=== PATIENT | male | born 1965 | race Caucasian/White ===

== ENCOUNTER 2016-05-13 21:20 | Emergency (ER) | payer OTHER ==
--- NOTE | 2016-05-13 22:48 | ED CLINICAL REPORT ---
Clinical Report - Physicians/Mid Levels [facility] [address] [place] [address] 05/13/2016 21:20 Patient: MACK GIPSON Time Seen: 21:45. Arrived- By private vehicle. Historian- patient and family. HISTORY OF PRESENT ILLNESS Chief Complaint: TREMORS and AGITATED. ANXIOUS. Wants to stop drug use. Symptoms started several days ago. Substances abused: Narcotics. Last drink just prior to arrival. Last drug use consisted of narcotics. (about 5 days ago). The patient has had mild, intermittent diarrhea. This has occurred several times. It has been watery. No bloody diarrhea. He has been agitated and depressed and had suicidal thoughts. The symptoms are described as moderate. No injuries noted. Similar symptoms previously: Recent medical care: The patient was seen recently at another facility in the emergency department. REVIEW OF SYSTEMS The patient has experienced sweats and had joint pain (neck and back), but not had weight loss. No headache, dizziness, weakness, chest pain or black stools. No numbness, bloody stools, sore throat, cough or difficulty breathing. No difficulty with urination or skin abscess. All systems otherwise negative, except as recorded above. PAST HISTORY See nurses notes. PCP: Dr Brock. Chronic back pain (and neck pain). SOCIAL HISTORY Smoker- current status unknown. Occasional alcohol use. Last drink was just prior to arrival. Patient is not an alcoholic. History of drug use prescribed oxycodone: narcotics. ADDITIONAL NOTES The nursing notes have been reviewed. PHYSICAL EXAM Vital Signs: 05/13/2016 21:27 BP: 130/80. HR: 115. RR: 18. O2 saturation: 96%. Temp: 98.0 F. Appearance: Alert. Oriented X3. Anxious. The patient is agitated and odor of alcohol is present. Head: Head atraumatic. Eyes: Pupils equal, round and reactive to light. ENT: Normal ENT inspection. Airway intact. Moist mucous membranes. Pharynx normal. Neck: Normal inspection. Neck supple. CVS: Tachycardia. Heart sounds normal. Pulses normal. Respiratory: No respiratory distress. Breath sounds normal. Abdomen: Soft and nontender. No organomegaly. Back: Normal inspection. Skin: Skin warm and dry. Normal skin color. No rash. Normal skin turgor. Extremities: Extremities exhibit normal ROM. No lower extremity edema. Neuro: Alert. Oriented X 3. Abnormal mood/affect. Cranial nerves normal (as tested). No cerebellar findings. No motor deficit. No sensory deficit. Reflexes normal. LABS, X-RAYS, AND EKG Laboratory Tests: Breathalyzer 0.196 . Pulse Oximetry: 05/13/2016 21:27 O2 saturation: 96%. (FIO2 - room air). Interpretation: normal. PROGRESS AND PROCEDURES Course of Care: Ativan 1mg IM given. Phenergan 25mg IM given. Dilaudid 2 mg + 1mg IM given. Pt abruptly stopped his chronic oxycodone. He agrees to discuss tapering off of this medication and possible methadone use with his pcp. He is denying SI or HI now; just states he wants to get over the withdrawals 23:40 05/13/16. Patient is stable. Physical exam findings are improved. Symptoms much better. Patient/family counseled. Old ED records reviewed. Disposition: Discharged. Condition: stable and improved. CLINICAL IMPRESSION Suicidal ideation Uncomplicated alcohol intoxication. Narcotic withdrawal INSTRUCTIONS Stay with responsible adult family member (or other responsible adult) until better. Do not work for three days. Drink plenty of fluids. No alcohol until released. (You will need to slowly taper off of your opiates. Your primary care provider or a specific detox center may help you with this). Warnings: Further evaluation is necessary in order to conduct further tests and assess the possibility of serious illness. It is very important to follow up with a physician. SEDATIVE MEDICATION: You were given sedative medication during your visit. Do not drive or operate dangerous machinery. CONTROLLED SUBSTANCE WARNINGS. GENERAL WARNINGS: Return or contact your physician immediately if your condition worsens or changes unexpectedly, if not improving as expected, or if other problems arise. Your Current Medications: CONTINUE TAKING THE FOLLOWING MEDICATIONS: Benadryl Allergy Oral : Tablet 25 mg, given tonight 05/13/16 8pm. OxyCODONE HCl Oral : 120mg, quit last saturday by himself. Phenergan (Promethazine) Oral : 25 mg, prn. Prescription Medications: Clonidine 0.1 mg: Take 1 orally every 12 hours. Dispense thirty (30). No refills. Follow-up with: Christiano Brock MD, [facility], , [facility], [address] , [place], [address] Follow up tomorrow. (Electronically signed by Celestine Cohn DO 05/14/2016 5:32)
--- NOTE | 2016-05-13 22:48 | ED ORDER SUMMARY ---
..... Patient: MACK GIPSON OrderSheet [facility] VisitID: [id number] [place] [address] 50y, M Registration Date/Time: 05/13/2016 ORDER SHEET Weight: 74.8 kg (stated) Allergies: Penicillins GENERAL ORDERS: Breathalyzer (22:02 05/13/2016 [facility]) (Ack 22:06 [facility] P[facility]) (22:39 SBalde R.N.) MEDICATION ORDERS: Dilaudid IM 2 mg (HIGH ALERT MEDICATION, NOW) (21:57 05/13/2016 [facility]) (Ack 21:57 JQuivey R.N.) (22:05 JQuivey R.N.) Phenergan IM 25 mg (HIGH ALERT MEDICATION, NOW) (21:57 05/13/2016 [facility]) (Ack 21:57 JQuivey R.N.) (22:05 JQuivey R.N.) Dilaudid IM 1 mg (HIGH ALERT MEDICATION, NOW) (23:02 05/13/2016 [facility]) (23:15 RCollier R.N.) Ativan IM 1 mg (HIGH ALERT MEDICATION, NOW) (23:02 05/13/2016 [facility]) (23:16 RCollier R.N.) IV FLUIDS: ORDER SHEET NOTES: [Electronically signed by Reina Sotelo R.N. (23:55 05/13/2016)] [Electronically signed by Celestine Cohn DO (05:32 05/14/2016)] [Electronically locked/signed by Reina Sotelo R.N. (23:55 05/13/2016)]
--- NOTE | 2016-05-13 22:48 | ED CLINICAL REPORT ---
Clinical Report - Physicians/Mid Levels [facility] [address] [place] [address] 05/13/2016 21:20 Patient: MACK GIPSON Time Seen: 21:45. Arrived- By private vehicle. Historian- patient and family. HISTORY OF PRESENT ILLNESS Chief Complaint: TREMORS and AGITATED. ANXIOUS. Wants to stop drug use. Symptoms started several days ago. Substances abused: Narcotics. Last drink just prior to arrival. Last drug use consisted of narcotics. (about 5 days ago). The patient has had mild, intermittent diarrhea. This has occurred several times. It has been watery. No bloody diarrhea. He has been agitated and depressed and had suicidal thoughts. The symptoms are described as moderate. No injuries noted. Similar symptoms previously: Recent medical care: The patient was seen recently at another facility in the emergency department. REVIEW OF SYSTEMS The patient has experienced sweats and had joint pain (neck and back), but not had weight loss. No headache, dizziness, weakness, chest pain or black stools. No numbness, bloody stools, sore throat, cough or difficulty breathing. No difficulty with urination or skin abscess. All systems otherwise negative, except as recorded above. PAST HISTORY See nurses notes. PCP: Dr Brock. Chronic back pain (and neck pain). SOCIAL HISTORY Smoker- current status unknown. Occasional alcohol use. Last drink was just prior to arrival. Patient is not an alcoholic. History of drug use prescribed oxycodone: narcotics. ADDITIONAL NOTES The nursing notes have been reviewed. PHYSICAL EXAM Vital Signs: 05/13/2016 21:27 BP: 130/80. HR: 115. RR: 18. O2 saturation: 96%. Temp: 98.0 F. Appearance: Alert. Oriented X3. Anxious. The patient is agitated and odor of alcohol is present. Head: Head atraumatic. Eyes: Pupils equal, round and reactive to light. ENT: Normal ENT inspection. Airway intact. Moist mucous membranes. Pharynx normal. Neck: Normal inspection. Neck supple. CVS: Tachycardia. Heart sounds normal. Pulses normal. Respiratory: No respiratory distress. Breath sounds normal. Abdomen: Soft and nontender. No organomegaly. Back: Normal inspection. Skin: Skin warm and dry. Normal skin color. No rash. Normal skin turgor. Extremities: Extremities exhibit normal ROM. No lower extremity edema. Neuro: Alert. Oriented X 3. Abnormal mood/affect. Cranial nerves normal (as tested). No cerebellar findings. No motor deficit. No sensory deficit. Reflexes normal. LABS, X-RAYS, AND EKG Laboratory Tests: Breathalyzer 0.196 . Pulse Oximetry: 05/13/2016 21:27 O2 saturation: 96%. (FIO2 - room air). Interpretation: normal. PROGRESS AND PROCEDURES Course of Care: Ativan 1mg IM given. Phenergan 25mg IM given. Dilaudid 2 mg + 1mg IM given. Pt abruptly stopped his chronic oxycodone. He agrees to discuss tapering off of this medication and possible methadone use with his pcp. He is denying SI or HI now; just states he wants to get over the withdrawals 23:40 05/13/16. Patient is stable. Physical exam findings are improved. Symptoms much better. Patient/family counseled. Old ED records reviewed. Disposition: Discharged. Condition: stable and improved. CLINICAL IMPRESSION Suicidal ideation Uncomplicated alcohol intoxication. Narcotic withdrawal INSTRUCTIONS Stay with responsible adult family member (or other responsible adult) until better. Do not work for three days. Drink plenty of fluids. No alcohol until released. (You will need to slowly taper off of your opiates. Your primary care provider or a specific detox center may help you with this). Warnings: Further evaluation is necessary in order to conduct further tests and assess the possibility of serious illness. It is very important to follow up with a physician. SEDATIVE MEDICATION: You were given sedative medication during your visit. Do not drive or operate dangerous machinery. CONTROLLED SUBSTANCE WARNINGS. GENERAL WARNINGS: Return or contact your physician immediately if your condition worsens or changes unexpectedly, if not improving as expected, or if other problems arise. Your Current Medications: CONTINUE TAKING THE FOLLOWING MEDICATIONS: Benadryl Allergy Oral : Tablet 25 mg, given tonight 05/13/16 8pm. OxyCODONE HCl Oral : 120mg, quit last saturday by himself. Phenergan (Promethazine) Oral : 25 mg, prn. Prescription Medications: Clonidine 0.1 mg: Take 1 orally every 12 hours. Dispense thirty (30). No refills. Follow-up with: Christiano Brock MD, Family [facility], , [facility], [address] , [place], [address] Follow up tomorrow. (Electronically signed by Celestine Cohn DO 05/14/2016 5:32)
--- NOTE | 2016-05-13 22:48 | ED ORDER SUMMARY ---
..... Patient: MACK GIPSON OrderSheet [facility] VisitID: [id number] [place] [address] 50y, M Registration Date/Time: 05/13/2016 ORDER SHEET Weight: 74.8 kg (stated) Allergies: Penicillins GENERAL ORDERS: Breathalyzer (22:02 05/13/2016 [facility]) (Ack 22:06 Lorenzo [facility] Director [facility]) (22:39 SBalde R.N.) MEDICATION ORDERS: Dilaudid IM 2 mg (HIGH ALERT MEDICATION, NOW) (21:57 05/13/2016 [facility]) (Ack 21:57 JQuivey R.N.) (22:05 JQuivey R.N.) Phenergan IM 25 mg (HIGH ALERT MEDICATION, NOW) (21:57 05/13/2016 [facility]) (Ack 21:57 JQuivey R.N.) (22:05 JQuivey R.N.) Dilaudid IM 1 mg (HIGH ALERT MEDICATION, NOW) (23:02 05/13/2016 [facility]) (23:15 RCollier R.N.) Ativan IM 1 mg (HIGH ALERT MEDICATION, NOW) (23:02 05/13/2016 [facility]) (23:16 RCollier R.N.) IV FLUIDS: ORDER SHEET NOTES: [Electronically signed by Reina Sotelo R.N. (23:55 05/13/2016)] [Electronically signed by Celestine Cohn DO (05:32 05/14/2016)] [Electronically locked/signed by Reina Sotelo R.N. (23:55 05/13/2016)]
--- NOTE | 2016-05-13 22:48 | ED NURSING NOTES ---
Clinical Report - Nurses [facility] [address] [place] [address] 05/13/2016 21:20 [id number] Triage time 21:May 13 2016. Acuity: LEVEL 2. Chief Complaint: SUICIDAL THOUGHTS and ANXIETY. Alert. No acute distress. CAMILLE COMA SCORE: [place]ao Coma Scale: 15- eyes open spontaneously (4); best verbal response- oriented x 4 (5); best motor response- obeys commands (6). --21:34 Susan Morris R.N. 21:27 05/13/16. BP: 130/80. HR: 115. RR: 18. O2 saturation: 96%. Temp: 98.0 F. Pain level now 10/10. --21:34 Susan Morris R.N. No acute distress. (error in previous charting, pt is restless in room, pacing, shakey and asking for help.). --21:50 Susan Morris R.N. Weight: 74.8 kg stated. Height/Length: 74 inches Estimated. BMI: 21.2. --21:27 Susan Morris R.N. Medications Phenergan (Promethazine) Oral 25 mg, as needed. --21:31 Susan Morris R.N. OxyCODONE HCl Oral 120mg (quit last saturday by himself ). --21:31 Susan Morris R.N. Benadryl Allergy Oral (Tablet 25 mg) (given tonight 05/13/16 8pm). --21:32 Susan Morris R.N. Medication/allergy information source: the patient and patient's significant other. --21:34 Susan Morris R.N. Allergies Penicillins. --21:30 Susan Morris R.N. History Arrived by private vehicle. Historian: patient. Accompanied by family. Primary physician (Dr Brock). The patient has had anxiety. Has been feeling agitated. Treatment DIRECTOR OF DIGITAL MARKETING: None. SOCIAL HX: Heavy tobacco smoker (cigarette)- 1 pack per day. Occasional alcohol use. No drug use. No infectious disease exposure. FALL RISK ASSESSMENT: Fall risk assessment completed. No fall risk identified. NUTRITIONAL RISK ASSESSMENT: The nutritional risk assessment revealed no deficiencies. FUNCTIONAL ASSESSMENT: Functional assessment: no impairments noted. LEARNING NEEDS ASSESSMENT: The learning needs assessment revealed no barriers. SKIN INTEGRITY ASSESSMENT: Skin integrity risk assessment completed. No skin integrity risk identified. --21:34 Susan Morris R.N. ( Significant Other brought in pt for narcotic withdrawals. Pt has been taking 120mg of Oxycodone for a length of time, quit last Saturday on his own. Has gone through with withdrawals in the past he states, however this is the worst pt states. Pt is agitated, restless, "I need some help to go through this". SO states he has a gun at home and has been threading his life today. The gun has been removed per SO.). --21:37 Susan Morris R.N. ( Pt states he quit May 03.). --21:51 Susan Morris R.N. SELF HARM ASSESSMENT: A self harm assessment was performed. The patient answered "yes" to the question "Have you recently felt down, depressed, or hopeless?", "Do you have thoughts of harming or killing yourself?", "Have you ever tried to hurt yourself before today?" and "Do you have any dangerous items in your possession?" and "no" to the question "Are you here because you tried to hurt yourself?" and "Have you recently had thoughts about harming or killing others?". The spouse reported the patient's behavior as agitated, restless and irritable and included verbal threats and suicidal comments. In the ED the patient has been agitated, restless and anxious. Family at bedside. The ED physician has been notified. (SO states there is a gun in the house, it has been removed and "in a place that he will not be able to find it" per SO. Pt was upset this am and today, stating he would shoot himself if he didn't get help for his withdrawals. This is all per SO. Pt would not admit to this during our conversation.). --21:54 Susan Morris R.N. PROBLEMS: Back Injury. Back Pain. --21:33 Susan Morris R.N. ADDITIONAL SURGERIES: Back Surgery. Neck Surgery. --21:33 Susan Morris R.N. Interventions ID band on patient. To room. --21:34 Susan Morris R.N. PHYSICAL ASSESSMENT Ambulatory to room. GENERAL / NEURO / PSYCH: Alert. Oriented X 4. Appears anxious and in distress. Poor eye contact. He describes suicidal thoughts (pt denies this in triage process to RN). Patient appears agitated. Patient smells of alcohol. RESPIRATORY: Respirations not labored. CVS: Capillary refill less than 2 seconds. --22:37 Susan Morris R.N. GENERAL / NEURO / PSYCH: Patient appears calm and cooperative. Good eye contact. --23:21 Susan Morris R.N. NURSING PROGRESS NOTES 22:05/13/2016 Dilaudid (HYDROmorphone HCl PF) IM 2 mg given. Allergies verified, confirmed 5 rights and sedative warning given to the patient. --22:05 Mack Donohue R.N. 22:05/13/2016 Phenergan (Promethazine HCl) IM 25 mg given. Allergies verified, confirmed 5 rights and sedative warning given to the patient. --22:05 Mack Donohue R.N. ( BREATHALYZER .196). --22:09 Gary Montejo, ER [employer] Overall patient status is the same- he states feels the same. ( pt states he isn't any better. RN explained that it may take some time for the medicine to kick in and he has been taking 120mg Oxycodone, his tolerance is quite high.). GENERAL / NEURO / PSYCH: The patient reports anxiety and restlessness. --22:34 Susan Morris R.N. 22:33 05/13/16. BP: 142/88. HR: 107. RR: 20. O2 saturation: 97%. --22:34 Susan Morris R.N. ( SO is Cassandra Rubio [phone]. Please call when pt is discharged.). --22:36 Susan Morris R.N. ( Pt states he would like "you to help me with my symptoms and I'd like to go home tonight. I feel safe to go home".). --22:38 Susan Morris R.N. 23:15 05/13/2016 Dilaudid (HYDROmorphone HCl PF) IM 1 mg given. Given in the left ventral gluteus. Allergies verified, confirmed 5 rights and sedative warning given to the patient. (mixed in syringe with Ativan). --23:15 Reina Sotelo R.N. 23:15 05/13/2016 Ativan (LORazepam) IM 1 mg given. Given in the left ventral gluteus. Allergies verified, confirmed 5 rights and sedative warning given to the patient. (mixed in syringe with Dilaudid). --23:16 Reina Sotelo R.N. ( Called and spoke with Cassandra AIME. She will be here at 2345 to pick pt up. Pt has his belongings returned. Pt feels safe to go home and denies any suicidal tendencies.). --23:21 Susan Morris R.N. Overall patient status- he states feels better. --23:21 Susan Morris R.N. DISPOSITION / DISCHARGE No learning barriers present. Patient verbalized understanding. Written instructions provided in Cook Islander. The patient was discharged home and accompanied by spouse. He left the Emergency Department ambulatory and via private vehicle. Spouse driving. ( discharged by another RN, left before they charted discharge). --23:54 Reina Sotelo R.N. 23:53 05/13/16. BP: deferred. HR: deferred. RR: deferred. O2 saturation: deferred. Temp: deferred. Pain level now deferred. --23:54 Reina Sotelo R.N. Locked/Released at 05/13/2016 23:55 by Reina Sotelo R.N.
--- NOTE | 2016-05-14 05:32 | ED MED RECONCILIATION SUMMARY ---
Patient: MACK GIPSON Medication Reconciliation Report [facility] VisitID: [id number] [address] [place] [address] 50y, M Registration Date/Time: 05/13/2016 Weight: 74.8 kg Height/Length: 74 in. BMI: 21.2 ALLERGIES: Penicillins The patient's Home Medications are listed below: CONTINUE TAKING THE FOLLOWING MEDICATIONS: Benadryl Allergy Oral (25 mg), given tonight 05/13/16 8pm OxyCODONE HCl Oral 120mg , quit last saturday by himself Phenergan (Promethazine) Oral 25 mg The source(s) of the original Home Medication information: patient patient's significant other The following Medications were given to the patient in the Emergency Department: Dilaudid [IM] IM 2 mg, administered: 05/13/2016 10:01:00 PM Phenergan [IM] IM 25 mg, administered: 05/13/2016 10:01:00 PM Dilaudid [IM] IM 1 mg, administered: 05/13/2016 11:15:00 PM Ativan [IM] IM 1 mg, administered: 05/13/2016 11:15:00 PM The following Medications were prescribed to the patient: Clonidine 0.1 mg: Take 1 orally every 12 hours. Dispense thirty (30). No refills. -- Celestine Cohn DO
--- NOTE | 2016-05-14 05:32 | ED MAR SUMMARY ---
..... Medication Administration Record [facility] [address] [place] [address] Patient: MACK GIPSON Visit ID: [id number] 50y, M Weight: 74.8 kg Height/Length: 74 in BMI: 21.2 ALLERGIES: Penicillins Given 22:05/13/2016 Mack Donohue R.N. Medication Administered: DILAUDID [IM] (HYDROMORPHONE HCL PF), Dose: 2 mg IM. Medication Ordered: Dilaudid IM 2 mg (HIGH ALERT MEDICATION, NOW). Given :05/13/2016 Mack Donohue R.N. Medication Administered: PHENERGAN [IM] (PROMETHAZINE HCL), Dose: 25 mg IM. Medication Ordered: Phenergan IM 25 mg (HIGH ALERT MEDICATION, NOW). Given :05/13/2016 Reina Sotelo R.N. Medication Administered: DILAUDID [IM] (HYDROMORPHONE HCL PF), Dose: 1 mg IM. Medication Ordered: Dilaudid IM 1 mg (HIGH ALERT MEDICATION, NOW). Given :05/13/2016 Reina Sotelo R.NJing Medication Administered: ATIVAN [IM] (LORAZEPAM), Dose: 1 mg IM. Medication Ordered: Ativan IM 1 mg (HIGH ALERT MEDICATION, NOW).
--- NOTE | 2016-05-14 05:32 | ED DISCHARGE INSTRUCTIONS ---
Patient: MACK GIPSON General Instructions [facility] VisitID: [id number] [place] [address] 50y, M Registration Date/Time: 05/13/2016 Suicidal ideation Uncomplicated alcohol intoxication. Narcotic withdrawal INSTRUCTIONS Stay with responsible adult family member (or other responsible adult) until better. Do not work for three days. Drink plenty of fluids. No alcohol until released. (You will need to slowly taper off of your opiates. Your primary care provider or a specific detox center may help you with this). Warnings: Further evaluation is necessary in order to conduct further tests and assess the possibility of serious illness. It is very important to follow up with a physician. SEDATIVE MEDICATION: You were given sedative medication during your visit. Do not drive or operate dangerous machinery. CONTROLLED SUBSTANCE WARNINGS. GENERAL WARNINGS: Return or contact your physician immediately if your condition worsens or changes unexpectedly, if not improving as expected, or if other problems arise. Your Current Medications: CONTINUE TAKING THE FOLLOWING MEDICATIONS: Benadryl Allergy Oral : Tablet 25 mg, given tonight 05/13/16 8pm. OxyCODONE HCl Oral : 120mg, quit last saturday by himself. Phenergan (Promethazine) Oral : 25 mg, prn. Prescription Medications: Clonidine 0.1 mg: Take 1 orally every 12 hours. Dispense thirty (30). No refills. Follow-up with: Christiano Brock MD, [facility], , [facility], [address] [place] [address], [phone] Follow up tomorrow. ADDITIONAL INFORMATION Alcohol Intoxication Alcohol intoxication occurs when you drink alcohol faster than your liver can remove it from your system. Alcohol intoxication affects your judgment and coordination. Very high blood alcohol levels can cause coma, very slow breathing and even . If you drink alcohol every day, this may gradually cause permanent damage to your liver, brain, heart, pancreas and other organs. Alcohol use during may cause permanent damage to the growing baby. Home Care: Do not drink any more alcohol. DO NOT DRIVE until all effects of the alcohol have worn off. Get lots of rest over the next few days. Drink plenty of water and other non-alcoholic liquids. Try to eat regular meals. If you have been drinking heavily on a daily basis, you may go through alcohol withdrawl. This is also called the shakes or DTs. The usual symptoms last 3 to 4 days and may include nervousness, shakiness, nausea, sweating or sleeplessness. During this time, it is best that you stay with family or friends who can help and support you. You can also admit yourself to a residential detox program. If your symptoms are severe, contact your doctor for medicines to help. Follow Up: If alcohol is causing a problem in your life, these and other organizations can help you: Alcoholics Anonymous offers support through a self-help fellowship. There are no dues or fees. See the Yellow Pages and call for time and place of meetings. www.aa.org [employer] offers support to families of alcohol users. 344.291.1547 www.al-anoevette.org National [place] On Alcoholism And Drug Dependence 408-982-6136 www.ncadd.org There are also inpatient or residential alcohol detox programs. Check the Internet or phonebook Yellow Pages under Drug Abuse & Treatment Centers. Get Prompt Medical Attention if any of the following occur: there) Depression Depression is one of the most common mental health problems today. It is not just a state of unhappiness or sadness. It is a true disease. The cause seems to be related to a decrease in chemicals that transmit signals in the brain. Having a family history of depression, alcoholism or suicide increases the risk. Chronic illness, chronic pain, migraine headaches and high emotional stress also increase the risk. Depression can cause many different symptoms, such as: -- Loss of appetite -- Over-eating -- Not being able to sleep -- Sleeping too much -- Tiredness not related to physical exertion -- Restlessness or irritability -- Slowness of movement or speech -- Feeling depressed or withdrawn -- Loss of interest in things you once enjoyed -- Difficulty in concentrating, poor memory, have trouble making decisions -- Thoughts of harming or killing oneself, or thoughts that life is not worth living -- Low self-esteem The best treatment for depression is a combination of medicine and psychotherapy. Antidepressant medicines can reduce suffering and can improve the ability to function during the depressed period. Therapy can offer emotional support and help you understand emotional factors that may be causing the depression. Home Care: 1) Be kind to yourself. Make it a point to do things that you enjoy (gardening, walking in nature, going to a movie, etc.). Reward yourself for small successes. 2) Take care of your physical body. Eat a balanced diet (low in saturated fat and high in fruits and vegetables). Establish an exercise plan at least 3 times a week for 30 minutes. Even mild-moderate exercise (like brisk walking) can make you feel better. 3) Avoid alcohol, which can make depression worse. Follow-Up with your doctor as advised. It is important to keep in contact with a health care provider until your symptoms begin to improve. Get Prompt Medical Attention if any of the following occur: -- Feeling extreme depression, fear, anxiety, or anger toward yourself or others -- Feeling out of control -- Feeling that you may try to harm yourself or another -- Hearing voices that others do not hear -- Seeing things that others do not see -- Cant sleep or eat for 3 days in a row Clonidine Hydrochloride Oral tablet What is this medicine? CLONIDINE (KLOE ni gini) is used to treat high blood pressure. How should I use this medicine? Take this medicine by mouth with a glass of water. Follow the directions on the prescription label. Take your doses at regular intervals. Do not take your medicine more often than directed. Do not suddenly stop taking this medicine. You must gradually reduce the dose or you may get a dangerous increase in blood pressure. Ask your doctor or health grounds caretaker for advice. Talk to your junior media buyer regarding the use of this medicine in children. Special care may be needed. What side effects may I notice from receiving this medicine? Side effects that you should report to your doctor or health grounds caretaker as soon as possible: allergic reactions like skin rash, itching or hives, swelling of the face, lips, or tongue anxiety, nervousness chest pain depression fast, irregular heartbeat swelling of feet or legs unusually weak or tired Side effects that usually do not require medical attention (report to your doctor or health grounds caretaker if they continue or are bothersome): change in sex drive or performance constipation headache What may interact with this medicine? Do not take this medicine with any of the following medications: MAOIs like Carbex, Eldepryl, Marplan, Nardil, and Parnate This medicine may also interact with the following medications: barbiturate medicines for inducing sleep or treating seizures like phenobarbital certain medicines for blood pressure, heart disease, irregular heart beat certain medicines for depression, anxiety, or psychotic disturbances prescription pain medicines What if I miss a dose? If you miss a dose, take it as soon as you can. If it is almost time for your next dose, take only that dose. Do not take double or extra doses. Where should I keep my medicine? Keep out of the reach of children. Store at room temperature between 15 and 30 degrees C (59 and 86 degrees F). Protect from light. Keep container tightly closed. Throw away any unused medicine after the expiration date. What should I tell my health care provider before I take this medicine? They need to know if you have any of these conditions: kidney disease an unusual or allergic reaction to clonidine, other medicines, foods, dyes, or preservatives or trying to get breast-feeding What should I watch for while using this medicine? Visit your doctor or health grounds caretaker for regular checks on your progress. Check your heart rate and blood pressure regularly while you are taking this medicine. Ask your doctor or health grounds caretaker what your heart rate should be and when you should contact him or her. You may get drowsy or dizzy. Do not drive, use machinery, or do anything that needs mental alertness until you know how this medicine affects you. To avoid dizzy or fainting spells, do not stand or sit up quickly, especially if you are an older person. Alcohol can make you more drowsy and dizzy. Avoid alcoholic drinks. Your mouth may get dry. Chewing sugarless gum or sucking hard candy, and drinking plenty of water will help. Do not treat yourself for coughs, colds, or pain while you are taking this medicine without asking your doctor or health grounds caretaker for advice. Some ingredients may increase your blood pressure. If you are going to have surgery tell your doctor or health grounds caretaker that you are taking this medicine. You have been given the following additional information: Alcohol Intoxication Depression Clonidine Hydrochloride Oral tablet Stay with responsible adult family member (or other responsible adult) until better. Do not work for three days. (Electronically signed by Celestine Cohn DO 05/14/2016 5:32)
--- NOTE | 2016-05-14 05:32 | ED DISCHARGE INSTRUCTIONS ---
Patient: MACK GIPSON General Instructions [facility] VisitID: [id number] [place] [address] 50y, M Registration Date/Time: 05/13/2016 Suicidal ideation Uncomplicated alcohol intoxication. Narcotic withdrawal INSTRUCTIONS Stay with responsible adult family member (or other responsible adult) until better. Do not work for three days. Drink plenty of fluids. No alcohol until released. (You will need to slowly taper off of your opiates. Your primary care provider or a specific detox center may help you with this). Warnings: Further evaluation is necessary in order to conduct further tests and assess the possibility of serious illness. It is very important to follow up with a physician. SEDATIVE MEDICATION: You were given sedative medication during your visit. Do not drive or operate dangerous machinery. CONTROLLED SUBSTANCE WARNINGS. GENERAL WARNINGS: Return or contact your physician immediately if your condition worsens or changes unexpectedly, if not improving as expected, or if other problems arise. Your Current Medications: CONTINUE TAKING THE FOLLOWING MEDICATIONS: Benadryl Allergy Oral : Tablet 25 mg, given tonight 05/13/16 8pm. OxyCODONE HCl Oral : 120mg, quit last saturday by himself. Phenergan (Promethazine) Oral : 25 mg, prn. Prescription Medications: Clonidine 0.1 mg: Take 1 orally every 12 hours. Dispense thirty (30). No refills. Follow-up with: Christiano Brock MD, [facility], , [facility], [address] [place] [address], [phone] Follow up tomorrow. ADDITIONAL INFORMATION Alcohol Intoxication Alcohol intoxication occurs when you drink alcohol faster than your liver can remove it from your system. Alcohol intoxication affects your judgment and coordination. Very high blood alcohol levels can cause coma, very slow breathing and even . If you drink alcohol every day, this may gradually cause permanent damage to your liver, brain, heart, pancreas and other organs. Alcohol use during may cause permanent damage to the growing baby. Home Care: Do not drink any more alcohol. DO NOT DRIVE until all effects of the alcohol have worn off. Get lots of rest over the next few days. Drink plenty of water and other non-alcoholic liquids. Try to eat regular meals. If you have been drinking heavily on a daily basis, you may go through alcohol withdrawl. This is also called the shakes or DTs. The usual symptoms last 3 to 4 days and may include nervousness, shakiness, nausea, sweating or sleeplessness. During this time, it is best that you stay with family or friends who can help and support you. You can also admit yourself to a residential detox program. If your symptoms are severe, contact your doctor for medicines to help. Follow Up: If alcohol is causing a problem in your life, these and other organizations can help you: Alcoholics Anonymous offers support through a self-help fellowship. There are no dues or fees. See the Yellow Pages and call for time and place of meetings. www.aa.org [employer] offers support to families of alcohol users. 217.496.3709 www.al-anoevette.org National [place] On Alcoholism And Drug Dependence 926-859-3119 www.ncadd.org There are also inpatient or residential alcohol detox programs. Check the Internet or phonebook Yellow Pages under Drug Abuse & Treatment Centers. Get Prompt Medical Attention if any of the following occur: there) Depression Depression is one of the most common mental health problems today. It is not just a state of unhappiness or sadness. It is a true disease. The cause seems to be related to a decrease in chemicals that transmit signals in the brain. Having a family history of depression, alcoholism or suicide increases the risk. Chronic illness, chronic pain, migraine headaches and high emotional stress also increase the risk. Depression can cause many different symptoms, such as: -- Loss of appetite -- Over-eating -- Not being able to sleep -- Sleeping too much -- Tiredness not related to physical exertion -- Restlessness or irritability -- Slowness of movement or speech -- Feeling depressed or withdrawn -- Loss of interest in things you once enjoyed -- Difficulty in concentrating, poor memory, have trouble making decisions -- Thoughts of harming or killing oneself, or thoughts that life is not worth living -- Low self-esteem The best treatment for depression is a combination of medicine and psychotherapy. Antidepressant medicines can reduce suffering and can improve the ability to function during the depressed period. Therapy can offer emotional support and help you understand emotional factors that may be causing the depression. Home Care: 1) Be kind to yourself. Make it a point to do things that you enjoy (gardening, walking in nature, going to a movie, etc.). Reward yourself for small successes. 2) Take care of your physical body. Eat a balanced diet (low in saturated fat and high in fruits and vegetables). Establish an exercise plan at least 3 times a week for 30 minutes. Even mild-moderate exercise (like brisk walking) can make you feel better. 3) Avoid alcohol, which can make depression worse. Follow-Up with your doctor as advised. It is important to keep in contact with a health care provider until your symptoms begin to improve. Get Prompt Medical Attention if any of the following occur: -- Feeling extreme depression, fear, anxiety, or anger toward yourself or others -- Feeling out of control -- Feeling that you may try to harm yourself or another -- Hearing voices that others do not hear -- Seeing things that others do not see -- Cant sleep or eat for 3 days in a row Clonidine Hydrochloride Oral tablet What is this medicine? CLONIDINE (KLOE ni gini) is used to treat high blood pressure. How should I use this medicine? Take this medicine by mouth with a glass of water. Follow the directions on the prescription label. Take your doses at regular intervals. Do not take your medicine more often than directed. Do not suddenly stop taking this medicine. You must gradually reduce the dose or you may get a dangerous increase in blood pressure. Ask your doctor or health care navigator for advice. Talk to your dowel inserting machine operator regarding the use of this medicine in children. Special care may be needed. What side effects may I notice from receiving this medicine? Side effects that you should report to your doctor or health care navigator as soon as possible: allergic reactions like skin rash, itching or hives, swelling of the face, lips, or tongue anxiety, nervousness chest pain depression fast, irregular heartbeat swelling of feet or legs unusually weak or tired Side effects that usually do not require medical attention (report to your doctor or health care navigator if they continue or are bothersome): change in sex drive or performance constipation headache What may interact with this medicine? Do not take this medicine with any of the following medications: MAOIs like Carbex, Eldepryl, Marplan, Nardil, and Parnate This medicine may also interact with the following medications: barbiturate medicines for inducing sleep or treating seizures like phenobarbital certain medicines for blood pressure, heart disease, irregular heart beat certain medicines for depression, anxiety, or psychotic disturbances prescription pain medicines What if I miss a dose? If you miss a dose, take it as soon as you can. If it is almost time for your next dose, take only that dose. Do not take double or extra doses. Where should I keep my medicine? Keep out of the reach of children. Store at room temperature between 15 and 30 degrees C (59 and 86 degrees F). Protect from light. Keep container tightly closed. Throw away any unused medicine after the expiration date. What should I tell my health care provider before I take this medicine? They need to know if you have any of these conditions: kidney disease an unusual or allergic reaction to clonidine, other medicines, foods, dyes, or preservatives or trying to get breast-feeding What should I watch for while using this medicine? Visit your doctor or health care navigator for regular checks on your progress. Check your heart rate and blood pressure regularly while you are taking this medicine. Ask your doctor or health care navigator what your heart rate should be and when you should contact him or her. You may get drowsy or dizzy. Do not drive, use machinery, or do anything that needs mental alertness until you know how this medicine affects you. To avoid dizzy or fainting spells, do not stand or sit up quickly, especially if you are an older person. Alcohol can make you more drowsy and dizzy. Avoid alcoholic drinks. Your mouth may get dry. Chewing sugarless gum or sucking hard candy, and drinking plenty of water will help. Do not treat yourself for coughs, colds, or pain while you are taking this medicine without asking your doctor or health care navigator for advice. Some ingredients may increase your blood pressure. If you are going to have surgery tell your doctor or health care navigator that you are taking this medicine. You have been given the following additional information: Alcohol Intoxication Depression Clonidine Hydrochloride Oral tablet Stay with responsible adult family member (or other responsible adult) until better. Do not work for three days. (Electronically signed by Celestine Cohn DO 05/14/2016 5:32)
--- NOTE | 2016-05-14 05:32 | ED MAR SUMMARY ---
..... Medication Administration Record [facility] [address] [place] [address] Patient: MACK GIPSON Visit ID: [id number] 50y, M Weight: 74.8 kg Height/Length: 74 in BMI: 21.2 ALLERGIES: Penicillins Given 22:05/13/2016 Makc Donohue R.N. Medication Administered: DILAUDID [IM] (HYDROMORPHONE HCL PF), Dose: 2 mg IM. Medication Ordered: Dilaudid IM 2 mg (HIGH ALERT MEDICATION, NOW). Given :05/13/2016 Mack Donohue R.N. Medication Administered: PHENERGAN [IM] (PROMETHAZINE HCL), Dose: 25 mg IM. Medication Ordered: Phenergan IM 25 mg (HIGH ALERT MEDICATION, NOW). Given :05/13/2016 Reina Sotelo R.N. Medication Administered: DILAUDID [IM] (HYDROMORPHONE HCL PF), Dose: 1 mg IM. Medication Ordered: Dilaudid IM 1 mg (HIGH ALERT MEDICATION, NOW). Given :05/13/2016 Reina Sotelo R.NJing Medication Administered: ATIVAN [IM] (LORAZEPAM), Dose: 1 mg IM. Medication Ordered: Ativan IM 1 mg (HIGH ALERT MEDICATION, NOW).
--- NOTE | 2016-05-14 05:32 | ED MED RECONCILIATION SUMMARY ---
Patient: MACK GIPOSN Medication Reconciliation Report [facility] VisitID: [id number] [address] [place] [address] 50y, M Registration Date/Time: 05/13/2016 Weight: 74.8 kg Height/Length: 74 in. BMI: 21.2 ALLERGIES: Penicillins The patient's Home Medications are listed below: CONTINUE TAKING THE FOLLOWING MEDICATIONS: Benadryl Allergy Oral (25 mg), given tonight 05/13/16 8pm OxyCODONE HCl Oral 120mg , quit last saturday by himself Phenergan (Promethazine) Oral 25 mg The source(s) of the original Home Medication information: patient patient's significant other The following Medications were given to the patient in the Emergency Department: Dilaudid [IM] IM 2 mg, administered: 05/13/2016 10:01:00 PM Phenergan [IM] IM 25 mg, administered: 05/13/2016 10:01:00 PM Dilaudid [IM] IM 1 mg, administered: 05/13/2016 11:15:00 PM Ativan [IM] IM 1 mg, administered: 05/13/2016 11:15:00 PM The following Medications were prescribed to the patient: Clonidine 0.1 mg: Take 1 orally every 12 hours. Dispense thirty (30). No refills. -- Celestine Cohn DO
== END 2016-05-13 23:40 | disposition home or self-care (01) ==
LOC: ED SRH 21:20
DX: F10.129 Alcohol abuse with intoxication, unspecified (principal); F11.23 Opioid dependence with withdrawal; R45.851 Suicidal ideations; F17.210 Nicotine dependence, cigarettes, uncomplicated; Z88.0 Allergy status to penicillin

== ENCOUNTER 2016-06-25 15:50 | Emergency (ER) | payer OTHER ==
--- NOTE | 2016-06-25 19:18 | ED MED RECONCILIATION SUMMARY ---
Patient: MACK GIPSON Medication Reconciliation Report [facility] VisitID: [id number] [address] [place] [address] 50y, M Registration Date/Time: 06/25/2016 Weight: 71.6 kg Height/Length: 70 in. BMI: 22.6 ALLERGIES: Penicillins The patient's Home Medications are listed below: NONE. The source(s) of the original Home Medication information: patient The following Medications were given to the patient in the Emergency Department: None. The following Medications were prescribed to the patient: None.
--- NOTE | 2016-06-25 19:18 | ED MAR SUMMARY ---
..... Medication Administration Record [facility] [address] [place], [place] [id number] Patient: MACK GIPSON Visit ID: [id number] 50y, M Weight: 71.6 kg Height/Length: 70 in BMI: 22.6 ALLERGIES: Penicillins
--- NOTE | 2016-06-25 19:18 | ED MAR SUMMARY ---
..... Medication Administration Record [facility] [address] [place], [place] [id number] Patient: MACK GIPSON Visit ID: [id number] 50y, M Weight: 71.6 kg Height/Length: 70 in BMI: 22.6 ALLERGIES: Penicillins
--- NOTE | 2016-06-25 19:18 | ED NURSING NOTES ---
Clinical Report - Nurses [place] [address] [place] [address] 06/25/2016 15:49 Patient: MACK GIPSON TRIAGE 16:41 no answer when called in waiting room. --16:41 María Mendoza R.N. Triage time 17:06. Acuity: LEVEL 3. Chief Complaint: (back pain). Alert. CAMILLE COMA SCORE: [place] Coma Scale: 15- eyes open spontaneously (4); best verbal response- oriented x 4 (5); best motor response- obeys commands (6). --17:13 María Mendoza R.N. 17:06 06/25/16. BP: 131/90. HR: 110. RR: 20. O2 saturation: 99% on room air. Temp: 98.1 F (oral). Pain level now: 11/12. --17:13 María Mendoza R.N. Weight: 71.6 kg. Height/Length: 70 inches. BMI: 22.6. --17:12 María Mendoza R.N. Medications None. --17:09 María Mendoza R.N. Medication/allergy information source: the patient. --17:13 María Mendoza R.N. Allergies Penicillins. --17:09 María Mendoza R.N. History Arrived by private vehicle. Historian: patient. Unaccompanied. Primary physician (Delmy). Onset. (about 7 days). ( states he had back surgery and was taking Oxycodone, he was trying to come off of that and decided to use alcohol to try and ease the pain). SOCIAL HX: Heavy tobacco smoker- less than 1 pack per day. Regular alcohol use. (for past 7 days). No drug use. FALL RISK ASSESSMENT: Fall risk assessment completed. No fall risk identified. FUNCTIONAL ASSESSMENT: Functional assessment: no impairments noted. LEARNING NEEDS ASSESSMENT: The learning needs assessment revealed no barriers. --17:13 Reji, María, R.N. PROBLEMS: Chronic Back Pain. Narcotic Withdrawal. Suicidal Ideation. Alcohol Intoxication. Back Injury. Back Pain. --17:10 María Mendoza R.N. ADDITIONAL SURGERIES: Back Surgery. Neck Surgery. --17:10 María Mendoza R.N. Assessment GENERAL / NEURO / PSYCH: The patient is awake and alert, is oriented and appears anxious and agitated. He has good eye contact. RESPIRATORY: Respirations not labored. SKIN: Skin is warm and dry. --17:13 María Mendoza R.N. Interventions ID and allergy band on patient. To treatment room. --17:13 María Mendoza R.N. PHYSICAL ASSESSMENT Ambulatory to room. ( Last drink 1400 feeling shaky, nausea, states feels like going to have a seizure or something. "feels just like he can't explain"). GENERAL / NEURO / PSYCH: Alert. Oriented X 4. Appears in pain, anxious and in distress. HEENT: Pupils equal, round and reactive to light. No facial asymmetry noted. Mucous membranes are pink. RESPIRATORY: Respirations not labored. Breath sounds within normal limits. CVS: Normal sinus rhythm noted. Capillary refill less than 2 seconds. Pulses within normal limits. GI / : ( Last BM three days ago). SKIN: Skin intact. Skin is warm and dry. Normal skin turgor. --17:37 Darron Walton R.N. NURSING PROGRESS NOTES Pulse oximeter and NIBP monitor placed on patient. Patient gowned. Head of bed elevated (45). Reassurance given. Call light placed in reach. Side rails up x 1. Bed placed in lowest position. Brakes of bed on. --17:37 Darron Walton R.N. DISPOSITION / DISCHARGE 18:10. ( Patient left without being treated.). --19:18 Darron Walton R.N. Locked/Released at 06/25/2016 19:18 by Darron Walton R.N.
--- NOTE | 2016-06-25 19:18 | ED MED RECONCILIATION SUMMARY ---
Patient: MACK GIPSON Medication Reconciliation Report [facility] VisitID: [id number] [address] [place] [address] 50y, M Registration Date/Time: 06/25/2016 Weight: 71.6 kg Height/Length: 70 in. BMI: 22.6 ALLERGIES: Penicillins The patient's Home Medications are listed below: NONE. The source(s) of the original Home Medication information: patient The following Medications were given to the patient in the Emergency Department: None. The following Medications were prescribed to the patient: None.
== END 2016-06-25 18:10 | disposition left against medical advice (07) ==
LOC: ED SRH 15:50
DX: Z53.21 Procedure and treatment not carried out due to patient leaving prior to being seen by health care provider (principal)
CPT/HCPCS: 90004

== ENCOUNTER 2016-07-24 18:33 | Emergency (ER) | payer OTHER ==
--- NOTE | 2016-07-24 20:33 | ED NURSING NOTES ---
Clinical Report - Nurses [facility] [address] [place] [address] 07/24/2016 18:33 Patient: MACK GIPSON TRIAGE Triage time 18:36. Acuity: LEVEL 3. Chief Complaint: (ETOH withdrawl). 18:43 07/24/16. Alert. No acute distress. SEPSIS SCREEN: Sepsis Screen. Negative (no infection suspected/documented). TONNY COMA SCORE: Tonny Coma Scale: 15- eyes open spontaneously (4); best verbal response- oriented x 4 (5); best motor response- obeys commands (6). --18:43 Eileen Garcia R.N. 18:43 07/24/16. BP: 122/86. HR: 83. RR: 16. O2 saturation: 97%. Temp: 98.3 F. Pain level now 7/10. --18:43 Eileen Garcia R.N. Weight: 70.3 kg stated. Height/Length: 70 inches Per Patient. BMI: 22.2. --18:42 Eileen Garcia R.N. Medications None. --18:42 Elieen Garcia R.N. Allergies Penicillins. --18:42 Eileen Garcia R.N. Medication/allergy information source: the patient. --18:43 Elieen Garcia R.N. History Arrived by private vehicle, and (dropped off by ). Primary physician (eloise). ( last drink 6 hours ago, feels he is withdrawing from etoh. Also complaining of chronic back and neck pain.). 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 SOCIAL HX: Heavy tobacco smoker (cigarette)- 1 pack per day. Alcohol use. Last drink was 6 hours ago. Patient is a longstanding alcoholic. (states he drinks a 5th every 3-4 days). No drug use. FALL RISK ASSESSMENT: Fall risk assessment completed. No fall risk identified. NUTRITIONAL RISK ASSESSMENT: The nutritional risk assessment revealed no deficiencies. FUNCTIONAL ASSESSMENT: Functional assessment: no impairments noted. LEARNING NEEDS ASSESSMENT: The learning needs assessment revealed no barriers. SKIN INTEGRITY ASSESSMENT: Skin integrity risk assessment completed. No skin integrity risk identified. --18:43 Eileen Garcia R.N. PROBLEMS: Chronic Back Pain. Narcotic Withdrawal. Suicidal Ideation. Alcohol Intoxication. Back Injury. Back Pain. --18:43 Eileen Garcia R.N. ADDITIONAL SURGERIES: Back Surgery. Neck Surgery. --18:43 Eileen Garcia R.N. Interventions ID band on patient. To treatment room. --18:43 Eileen Garcia R.N. PHYSICAL ASSESSMENT 18:43 07/24/16. Ambulatory to room. GENERAL / NEURO / PSYCH: Alert. Oriented X 4. HEENT: Mucous membranes are pink. RESPIRATORY: Respirations not labored. CVS: Capillary refill less than 2 seconds. GI / : Abdomen soft and nontender. SKIN: Skin intact. Skin is warm and dry. Normal skin turgor. --18:43 Eileen Garcia R.N. NURSING PROGRESS NOTES 18:43 07/24/16. The plan of care for this patient has been created. Patient gowned. Head of bed elevated. Call light placed in reach. Bed placed in lowest position. Brakes of bed on. Patient ready for evaluation- chart flagged. --18:43 Eileen Garcia R.N. 18:55 07/24/2016 Site #1 started via IV in the right forearm with an 20g angiocath, with aseptic technique and good blood return; one attempt. Blood drawn: rainbow set. Labeled in the presence of the patient and sent to the lab. Saline lock flushed with 10 mL saline. --20:13 Mack Mcmahan R.N. DISPOSITION / DISCHARGE The patient left the Emergency Department without completion of treatment. Gown found on bed. Patient paged once. Notified the ED physician of patient departure. ( notified PD of IV in place). --19:16 Eileen Garcia R.N. The patient left the Emergency Department against medical advice and without completion of treatment. The patient appears to be alert and oriented x4 (anxious). Gown found on bed. Unable to locate patient. Patient paged once with no response. The patient stated is leaving the ED (pt called on his cell phone and he stated that he went to the bathroom to void, came back to his room and thought that he should leave because he didn't see anyone.). Notified the ED physician and charge nurse of patient departure. Prior to leaving the ED, he was advised to return if needed. Patient left without signing form prior to leaving. He left the Emergency Department ambulatory and via private vehicle. The patient eloped. --18:26 Mack Mcmahan R.N. Locked/Released at 08/02/2016 18:26 by Mack Mcmahan R.N.
--- NOTE | 2016-07-24 20:33 | ED ORDER SUMMARY ---
..... Patient: MACK GIPSON OrderSheet [facility] VisitID: [id number] [address] [place] [address] 50y, M Registration Date/Time: 07/24/2016 ORDER SHEET Weight: 70.3 kg (stated) Allergies: Penicillins GENERAL ORDERS: CBC w Diff Urgent (18:50 07/24/2016 EKoroleva P.A.-C) (Ack 18:51 KHoerner) (20:13 JRomanelli R.N.) CMP Urgent (18:50 07/24/2016 EKoroleva P.A.-C) (Ack 18:51 KHoerner) (20:13 JRomanelli R.N.) UA-Culture if indicated Urgent (18:50 07/24/2016 EKoroleva P.A.-C) (Ack 18:51 KHoerner) Ethyl Alcohol Urgent (18:50 07/24/2016 EKoroleva P.A.-C) (Ack 18:51 KHoerner) (20:13 JRomanelli R.N.) Urine Drug Screen Urgent (19:03 07/24/2016 EKoroleva P.A.-C) (Ack 19:05 KHoerner) (20:13 JRomanelli R.N.) MEDICATION ORDERS: IV FLUIDS: IV NS with Folic Acid 1 mg/L, Magnesium Sulfate 2 gm/L, Multivitamin Concentrate Intravenous 1 amp/L, Thiamine HCl 100 mg/L: initial bolus 1000 mL (1000 mL/hr), then 100 mL/hr for X1 (NOW); Ra (18:50 07/24/2016 EKoroleva P.A.-C) IV Saline Lock (20:11 07/24/2016 JRomanelli R.N. verbal order read back to EKoroleva P.A.-C) (20:13 JRomanelli R.N.) ORDER SHEET NOTES: [Electronically signed by Sharon GaonaA.-C (20:59 07/24/2016)] [Electronically signed by Phyllis Edgar R.N. (08:00 08/01/2016)] [Electronically signed by Mack Mcmahan R.N. (18:26 08/02/2016)] [Electronically locked/signed by Phyllis Edgar R.N. (08:00 08/01/2016)]
--- NOTE | 2016-07-24 20:33 | ED CLINICAL REPORT ---
Clinical Report - Physicians/Mid Levels [facility] [address] [place] [address] 07/24/2016 18:33 Patient: [facility]ACK [facility]IPSON [id number] Time Seen: 19:04 Jul 24 2016. Arrived- By private vehicle. Historian- patient. HISTORY OF PRESENT ILLNESS Chief Complaint: "GOT THE SHAKES" and INTOXICATED. Wants to stop drinking. Wants to enter detox program. Symptoms started today. Patient reports his history of chronic back pain, recently stopped taking his narcotic medications, oxycodone, seen as been on them for 6 years, this was a decision he mean by himself, and has been drinking more heavily over the last 7 days, 1/5 hard alcohol a day. Reports last drink 6 hours prior. REVIEW OF SYSTEMS The patient has not had weight loss. No headache or dizziness. All systems otherwise negative, except as recorded above. PAST HISTORY Problems: Chronic Back Pain. Narcotic Withdrawal. Suicidal Ideation. Alcohol Intoxication. Back Injury. Back Pain. Additional Surgeries: Back Surgery. Neck Surgery. Medications: None. Allergies: Penicillins. SOCIAL HISTORY Has social support. Has place to stay (lives at home with / daughter). ADDITIONAL NOTES The nursing notes have been reviewed. PHYSICAL EXAM Vital Signs: 07/24/2016 18:43 BP: 122/86. HR: 83. RR: 16. O2 saturation: 97%. Temp: 98.3 F. Head: Head atraumatic. No ecchymosis. Eyes: Pupils equal, round and reactive to light. ENT: The mucous membranes are not dry. Neck: Normal inspection. CVS: Normal heart rate and rhythm. Heart sounds normal. Pulses normal. Rhythm normal. No cardiac murmur. Respiratory: No respiratory distress. Breath sounds normal. Abdomen: Soft and nontender. Skin: Normal skin color. Neuro: Alert. Oriented X 3. Mood/affect normal. Speech normal. No cerebellar findings. No motor deficit. LABS, X-RAYS, AND EKG Laboratory Tests: CBC w Diff: (YANI: 07/24/2016 18:50) ( MsgRcvd 07/24/2016 19:07) Final results Test Result Flag Units (Reference) WHITE BLOOD COUNT 4.7 K/uL (4.5-11.5) RED BLOOD COUNT 4.79 M/uL (4.50-5.90) HEMOGLOBIN 16.0 gm/dL (13.5-17.5) HEMATOCRIT 47.1 % (41.0-53.0) MEAN CELL VOLUME 98 fL (80-100) MEAN CORPUSCULAR HGB 33 pg (26-34) MEAN CORPUSCULAR HGB CONC 34 g/dL (31-37) RED CELL DISTRIBUTION WIDTH 16.5 H % (11.6-14.8) PLATELET COUNT 287 K/uL (150-400) NEUTROPHIL % 52.3 % (50-75) LYMPH % 38.3 % (25-40) MONO % 7.5 % (3-14) EOSINOPHIL % 0.8 % (0-4) BASOPHIL % 1.1 % (0-2) CMP: (YANI: 07/24/2016 18:50) ( MsgRcvd 07/24/2016 19:24) Final results Test Result Flag Units (Reference) GLUCOSE 88 mg/dL (70-110) BUN 12 mg/dL (7-18) CREATININE 0.8 mg/dL (0.6-1.3) Estimated GFR >60 mL/min Estimated GFR- >60 mL/min Note: Persistent reduction over 3 months in eGFR<60 mL/min/1.73 m2 defines CKD. Patients with eGFR values>=60 mL/min/1.73 m2 may also have CKD if evidence ofpersistent proteinuria. Additional information may be foundat www.kidney.org. SODIUM 144 mmol/L (136-145) POTASSIUM 3.7 mmol/L (3.5-5.1) CHLORIDE 104 mmol/L (98-107) CARBON DIOXIDE 22 mmol/L (21-32) CALCIUM 9.0 mg/dL (8.5-10.1) TOTAL PROTEIN 8.4 H g/dL (6.4-8.2) ALBUMIN 4.3 g/dL (3.3-5.0) BILIRUBIN, TOTAL 0.7 mg/dL (0.0-1.0) ALKALINE PHOSPHATASE 71 U/L (46-116) AST (SGOT) 76 H U/L (15-37) ALT (SGPT) 55 U/L (12-78) ETHYL ALCOHOL 296 H mg/dL (3-10) . PROGRESS AND PROCEDURES Course of Care: IV was started for the patient, consequently he left the emergency department, have attempted to call him phone him, as well as overhead page him, unable to find patient at this time. Patient left AGAINST MEDICAL ADVICE in the emergency department, he was alert awake oriented, he was not witnessed leaving, he did have an IV in place, if found he needs to be have the IV removed, he does not have any active tremors at the time of his departure. Patient is stable. Symptoms better. Patient/family counseled. CLINICAL IMPRESSION (Electronically signed by Sharon Gaona P.A.-C 07/24/2016 20:59)
--- NOTE | 2016-07-24 20:33 | ED NURSING NOTES ---
Clinical Report - Nurses [facility] [address] [place] [address] 07/24/2016 18:33 Patient: MACK GIPSON TRIAGE Triage time 18:36. Acuity: LEVEL 3. Chief Complaint: (ETOH withdrawl). 18:43 07/24/16. Alert. No acute distress. SEPSIS SCREEN: Sepsis Screen. Negative (no infection suspected/documented). TONNY COMA SCORE: Tonny Coma Scale: 15- eyes open spontaneously (4); best verbal response- oriented x 4 (5); best motor response- obeys commands (6). --18:43 Eileen Garcia R.N. 18:43 07/24/16. BP: 122/86. HR: 83. RR: 16. O2 saturation: 97%. Temp: 98.3 F. Pain level now 7/10. --18:43 Eileen Garcia R.N. Weight: 70.3 kg stated. Height/Length: 70 inches Per Patient. BMI: 22.2. --18:42 Eileen Garcia R.N. Medications None. --18:42 Eileen Garcia R.N. Allergies Penicillins. --18:42 Eileen Garcia R.N. Medication/allergy information source: the patient. --18:43 Eileen Garcia R.N. History Arrived by private vehicle, and (dropped off by ). Primary physician (eloise). ( last drink 6 hours ago, feels he is withdrawing from etoh. Also complaining of chronic back and neck pain.). 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 SOCIAL HX: Heavy tobacco smoker (cigarette)- 1 pack per day. Alcohol use. Last drink was 6 hours ago. Patient is a longstanding alcoholic. (states he drinks a 5th every 3-4 days). No drug use. FALL RISK ASSESSMENT: Fall risk assessment completed. No fall risk identified. NUTRITIONAL RISK ASSESSMENT: The nutritional risk assessment revealed no deficiencies. FUNCTIONAL ASSESSMENT: Functional assessment: no impairments noted. LEARNING NEEDS ASSESSMENT: The learning needs assessment revealed no barriers. SKIN INTEGRITY ASSESSMENT: Skin integrity risk assessment completed. No skin integrity risk identified. --18:43 Eileen Garcia R.N. PROBLEMS: Chronic Back Pain. Narcotic Withdrawal. Suicidal Ideation. Alcohol Intoxication. Back Injury. Back Pain. --18:43 Eileen Garcia R.N. ADDITIONAL SURGERIES: Back Surgery. Neck Surgery. --18:43 Eileen Garcia R.N. Interventions ID band on patient. To treatment room. --18:43 Eileen Garcia R.N. PHYSICAL ASSESSMENT 18:43 07/24/16. Ambulatory to room. GENERAL / NEURO / PSYCH: Alert. Oriented X 4. HEENT: Mucous membranes are pink. RESPIRATORY: Respirations not labored. CVS: Capillary refill less than 2 seconds. GI / : Abdomen soft and nontender. SKIN: Skin intact. Skin is warm and dry. Normal skin turgor. --18:43 Eileen Garcia R.N. NURSING PROGRESS NOTES 18:43 07/24/16. The plan of care for this patient has been created. Patient gowned. Head of bed elevated. Call light placed in reach. Bed placed in lowest position. Brakes of bed on. Patient ready for evaluation- chart flagged. --18:43 Eileen Garcia R.N. 18:55 07/24/2016 Site #1 started via IV in the right forearm with an 20g angiocath, with aseptic technique and good blood return; one attempt. Blood drawn: rainbow set. Labeled in the presence of the patient and sent to the lab. Saline lock flushed with 10 mL saline. --20:13 Mack Mcmahan R.N. DISPOSITION / DISCHARGE The patient left the Emergency Department without completion of treatment. Gown found on bed. Patient paged once. Notified the ED physician of patient departure. ( notified PD of IV in place). --19:16 Eileen Garcia R.N. The patient left the Emergency Department against medical advice and without completion of treatment. The patient appears to be alert and oriented x4 (anxious). Gown found on bed. Unable to locate patient. Patient paged once with no response. The patient stated is leaving the ED (pt called on his cell phone and he stated that he went to the bathroom to void, came back to his room and thought that he should leave because he didn't see anyone.). Notified the ED physician and charge nurse of patient departure. Prior to leaving the ED, he was advised to return if needed. Patient left without signing form prior to leaving. He left the Emergency Department ambulatory and via private vehicle. The patient eloped. --18:26 Mack Mcmahan R.N. Locked/Released at 08/02/2016 18:26 by Mack Mcmahan R.N.
--- NOTE | 2016-07-24 20:33 | ED ORDER SUMMARY ---
..... Patient: MACK GIPSON OrderSheet [facility] VisitID: [id number] [address] [place] [address] 50y, M Registration Date/Time: 07/24/2016 ORDER SHEET Weight: 70.3 kg (stated) Allergies: Penicillins GENERAL ORDERS: CBC w Diff Urgent (18:50 07/24/2016 EKoroleva P.A.-C) (Ack 18:51 KHoerner) (20:13 JRomanelli R.N.) CMP Urgent (18:50 07/24/2016 EKoroleva P.A.-C) (Ack 18:51 KHoerner) (20:13 JRomanelli R.N.) UA-Culture if indicated Urgent (18:50 07/24/2016 EKoroleva P.A.-C) (Ack 18:51 KHoerner) Ethyl Alcohol Urgent (18:50 07/24/2016 EKoroleva P.A.-C) (Ack 18:51 KHoerner) (20:13 JRomanelli R.N.) Urine Drug Screen Urgent (19:03 07/24/2016 EKoroleva P.A.-C) (Ack 19:05 KHoerner) (20:13 JRomanelli R.N.) MEDICATION ORDERS: IV FLUIDS: IV NS with Folic Acid 1 mg/L, Magnesium Sulfate 2 gm/L, Multivitamin Concentrate Intravenous 1 amp/L, Thiamine HCl 100 mg/L: initial bolus 1000 mL (1000 mL/hr), then 100 mL/hr for X1 (NOW); Ra (18:50 07/24/2016 EKoroleva P.A.-C) IV Saline Lock (20:11 07/24/2016 JRomanelli R.N. verbal order read back to EKoroleva P.A.-C) (20:13 JRomanelli R.N.) ORDER SHEET NOTES: [Electronically signed by Sharon GaonaA.-C (20:59 07/24/2016)] [Electronically signed by Phyllis Edgar R.N. (08:00 08/01/2016)] [Electronically signed by Mack Mcmahan R.N. (18:26 08/02/2016)] [Electronically locked/signed by Phyllis Edgar R.N. (08:00 08/01/2016)]
--- NOTE | 2016-08-02 18:27 | ED MAR SUMMARY ---
..... Medication Administration Record [facility] [address] [place], [place] [id number] Patient: MACK GIPSON Visit ID: [id number] 50y, M Weight: 70.3 kg Height/Length: 70 in BMI: 22.2 ALLERGIES: Penicillins
--- NOTE | 2016-08-02 18:27 | ED DISCHARGE INSTRUCTIONS ---
Patient: MACK GIPSON General Instructions [facility] VisitID: [id number] [place] [address] 50y, M Registration Date/Time: 07/24/2016 ADDITIONAL INFORMATION Alcohol Intoxication Alcohol intoxication occurs when you drink alcohol faster than your liver can remove it from your system. Alcohol intoxication affects your judgment and coordination. Very high blood alcohol levels can cause coma, very slow breathing and even . If you drink alcohol every day, this may gradually cause permanent damage to your liver, brain, heart, pancreas and other organs. Alcohol use during may cause permanent damage to the growing baby. Home Care: Do not drink any more alcohol. DO NOT DRIVE until all effects of the alcohol have worn off. Get lots of rest over the next few days. Drink plenty of water and other non-alcoholic liquids. Try to eat regular meals. If you have been drinking heavily on a daily basis, you may go through alcohol withdrawl. This is also called the shakes or DTs. The usual symptoms last 3 to 4 days and may include nervousness, shakiness, nausea, sweating or sleeplessness. During this time, it is best that you stay with family or friends who can help and support you. You can also admit yourself to a residential detox program. If your symptoms are severe, contact your doctor for medicines to help. Follow Up: If alcohol is causing a problem in your life, these and other organizations can help you: Alcoholics Anonymous offers support through a self-help fellowship. There are no dues or fees. See the Yellow Pages and call for time and place of meetings. www.aa.org Al-Anon offers support to families of alcohol users. 977.606.5594 www.al-anon.org National [place] On Alcoholism And Drug Dependence 372-686-3058 www.ncadd.org There are also inpatient or residential alcohol detox programs. Check the Internet or phonebook Yellow Pages under Drug Abuse & Treatment Centers. Get Prompt Medical Attention if any of the following occur: there) You have been given the following additional information: Alcohol Intoxication (Electronically signed by Sharon Gaona P.A.-C 07/24/2016 20:59)
--- NOTE | 2016-08-02 18:27 | ED MED RECONCILIATION SUMMARY ---
Patient: MACK GIPSON Medication Reconciliation Report [facility] VisitID: [id number] [address] [place] [address] 50y, M Registration Date/Time: 07/24/2016 Weight: 70.3 kg Height/Length: 70 in. BMI: 22.2 ALLERGIES: Penicillins The patient's Home Medications are listed below: NONE. The source(s) of the original Home Medication information: patient The following Medications were given to the patient in the Emergency Department: None. The following Medications were prescribed to the patient: None.
--- NOTE | 2016-08-02 18:27 | ED DISCHARGE INSTRUCTIONS ---
Patient: MACK GIPSON General Instructions [facility] VisitID: [id number] [place] [address] 50y, M Registration Date/Time: 07/24/2016 ADDITIONAL INFORMATION Alcohol Intoxication Alcohol intoxication occurs when you drink alcohol faster than your liver can remove it from your system. Alcohol intoxication affects your judgment and coordination. Very high blood alcohol levels can cause coma, very slow breathing and even . If you drink alcohol every day, this may gradually cause permanent damage to your liver, brain, heart, pancreas and other organs. Alcohol use during may cause permanent damage to the growing baby. Home Care: Do not drink any more alcohol. DO NOT DRIVE until all effects of the alcohol have worn off. Get lots of rest over the next few days. Drink plenty of water and other non-alcoholic liquids. Try to eat regular meals. If you have been drinking heavily on a daily basis, you may go through alcohol withdrawl. This is also called the shakes or DTs. The usual symptoms last 3 to 4 days and may include nervousness, shakiness, nausea, sweating or sleeplessness. During this time, it is best that you stay with family or friends who can help and support you. You can also admit yourself to a residential detox program. If your symptoms are severe, contact your doctor for medicines to help. Follow Up: If alcohol is causing a problem in your life, these and other organizations can help you: Alcoholics Anonymous offers support through a self-help fellowship. There are no dues or fees. See the Yellow Pages and call for time and place of meetings. www.aa.org Al-Anon offers support to families of alcohol users. 963.737.6221 www.al-anon.org National [place] On Alcoholism And Drug Dependence 684-351-3623 www.ncadd.org There are also inpatient or residential alcohol detox programs. Check the Internet or phonebook Yellow Pages under Drug Abuse & Treatment Centers. Get Prompt Medical Attention if any of the following occur: there) You have been given the following additional information: Alcohol Intoxication (Electronically signed by Sharon Gaona P.A.-C 07/24/2016 20:59)
--- NOTE | 2016-08-02 18:27 | ED MED RECONCILIATION SUMMARY ---
Patient: MACK GIPSON Medication Reconciliation Report [facility] VisitID: [id number] [address] [place] [address] 50y, M Registration Date/Time: 07/24/2016 Weight: 70.3 kg Height/Length: 70 in. BMI: 22.2 ALLERGIES: Penicillins The patient's Home Medications are listed below: NONE. The source(s) of the original Home Medication information: patient The following Medications were given to the patient in the Emergency Department: None. The following Medications were prescribed to the patient: None.
--- NOTE | 2016-08-02 18:27 | ED MAR SUMMARY ---
..... Medication Administration Record [facility] [address] [place], [place] [id number] Patient: MACK GIPSON Visit ID: [id number] 50y, M Weight: 70.3 kg Height/Length: 70 in BMI: 22.2 ALLERGIES: Penicillins
== END 2016-07-24 19:19 | disposition home or self-care (01) ==
LOC: ED SRH 18:33
DX: F10.239 Alcohol dependence with withdrawal, unspecified (principal); F11.10 Opioid abuse, uncomplicated
CPT/HCPCS: 90100; 92010; 95059

== ENCOUNTER 2016-07-25 16:42 | Emergency (ER) | payer OTHER ==
--- NOTE | 2016-07-25 17:41 | DIAGNOSTIC IMAGING REPORT ---
PROCEDURE: XR LUMBAR SPINE 2 OR 3 VIEWS INDICATION: LOWER BACK PAIN TECHNIQUE: Three views. COMPARISON: Lumbar CT 08/09/2019 FINDINGS: Status post L5-S1 fusion for spondylolisthesis. No fracture dislocation. IMPRESSION: 1. Status post lumbar fusion and artificial disc. No fracture or dislocation.
--- NOTE | 2016-07-25 17:47 | ED ORDER SUMMARY ---
..... Patient: MACK GIPSON OrderSheet [facility] VisitID: [id number] [place] [address] 50y, M Registration Date/Time: 07/25/2016 ORDER SHEET Weight: 68.0 kg (stated) Allergies: Penicillin GENERAL ORDERS: Urine Drug Screen Urgent (16:54 07/25/2016 Elijah Russell) (Ack 16:57 Ethan) (17:20 JBoardley R.N.) UA-Culture if indicated Urgent (16:54 07/25/2016 Elijah Russell) (Ack 16:57 Ethan) (17:20 JBoardley R.N.) Lumbar Spine 2 or 3V Urgent (17:06 07/25/2016 Elijah Russell) (Ack 17:07 Ethan) (17:20 JBoardley R.N.) MEDICATION ORDERS: IV FLUIDS: Toradol IV 30 mg (NOW) (17:06 07/25/2016 Elijah Russell) (Ack 17:08 SStone R.N.) (17:12 SStone R.N.) ORDER SHEET NOTES: [Electronically signed by Little Keith R.N. (17:55 07/25/2016)] [Electronically signed by Roge Kearney Dr. (22:21 07/25/2016)] [Electronically locked/signed by Little Keith R.N. (17:55 07/25/2016)]
--- NOTE | 2016-07-25 17:47 | ED ORDER SUMMARY ---
..... Patient: MACK GIPSON OrderSheet [facility] VisitID: [id number] [place] [address] 50y, M Registration Date/Time: 07/25/2016 ORDER SHEET Weight: 68.0 kg (stated) Allergies: Penicillin GENERAL ORDERS: Urine Drug Screen Urgent (16:54 07/25/2016 Elijah Russell) (Ack 16:57 Ethan) (17:20 JBoardley R.N.) UA-Culture if indicated Urgent (16:54 07/25/2016 Elijah Russell) (Ack 16:57 Ethan) (17:20 JBoardley R.N.) Lumbar Spine 2 or 3V Urgent (17:06 07/25/2016 Elijah Russell) (Ack 17:07 Ethan) (17:20 JBoardley R.N.) MEDICATION ORDERS: IV FLUIDS: Toradol IV 30 mg (NOW) (17:06 07/25/2016 Elijah Russell) (Ack 17:08 SStone R.N.) (17:12 SStone R.N.) ORDER SHEET NOTES: [Electronically signed by Little Keith R.N. (17:55 07/25/2016)] [Electronically signed by Roge Kearney Dr. (22:21 07/25/2016)] [Electronically locked/signed by Little Keith R.N. (17:55 07/25/2016)]
--- NOTE | 2016-07-25 17:47 | ED NURSING NOTES ---
Clinical Report - Nurses [facility] [place] [address] 07/25/2016 16:43 Patient: MACK GIPSON TRIAGE Triage time 16:44. Acuity: LEVEL 3. Chief Complaint: BACK PAIN and (lower back pain with radiation down both legs. Hx of back surgery 3 years ago). --16:47 Little Keith R.N. 16:44 07/25/16. BP: 129/61. HR: 94. RR: 22. O2 saturation: 94% on room air. Temp: 98.3 F. Pain level now: 01/13. --16:47 Little Keith R.N. Weight: 68 kg stated. Height/Length: 70 inches Per Patient. BMI: 21.5. --16:47 Little Keith R.N. Medications None. --16:46 Little Keith R.N. Allergies Penicillin. --16:45 Little Keith R.N. 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 SOCIAL HX: Smoker- current status unknown. Alcohol use; consumes beer occasionally. --16:47 Little Keith R.N. Interventions ID band on patient. --16:47 Little Keith R.N. PHYSICAL ASSESSMENT To room via stretcher. GENERAL / NEURO / PSYCH: Alert. Oriented X 4. (intoxicated). RESPIRATORY: Respirations not labored. Breath sounds within normal limits. GI / : Abdomen soft. EXTREMITIES: Sensation intact in extremities. BACK: ( vertical scar lower back from previous surgery. well healed.). Normal inspection of the neck and back. --16:49 Little Keith R.N. NURSING PROGRESS NOTES Patient gowned. Reassurance given. Call light placed in reach. Side rails up. Bed placed in lowest position. Patient waiting for evaluation. --16:50 Little Keith R.N. ( mask placed on patient due to his cough. He states he has had this cough for at least six weeks.). --16:50 Little Keith R.N. ( patient had an episode of shaking, clenching his hands, would not respond to nurse. He turned over on his side, grabbed the railing and continued to shake. A second nurse was called into the room. The patient would not respond to verbal commands, though when asked by the MD to place a padron for a urine sample, the patient opened his eyes and said no padron. I refuse.). --16:57 Little Keith R.N. 16:46 07/25/2016 Site #1 started prior to arrival by EMS via IV in the left antecubital space with an 18g angiocath. Saline lock flushed with 10 mL saline. --17:11 Little Keith R.N. 17:06 07/25/2016 Toradol IVP 30 mg given over 3 minute(s) via site #1. --17:12 Little Keith R.N. Patient transported to radiology by wheelchair with tech. --17:17 Marci Ferguson R.N. 17:18 07/25/16. ( Pt was found standing at side of bed, pulled out IV and pulled off cardiac leads. Pt stated he "does not like the IV and the ECG leads." MD aware.). --17:18 Wily Kate R.N. 17:18 07/25/16. Patient and family informed about reason for wait and about plan of care. --17:18 Wily Kate R.N. 17:19 07/25/16. ED physician notified about patient's status. --17:19 Wily Kate R.N. ( M99 phoned to inquire about patient belongings. Informed they left them at his house.). --17:48 Little Keith R.N. DISPOSITION / DISCHARGE Departure time: 1750. The patient left the Emergency Department against medical advice; patient was unaccompanied. The patient appears to be uncooperative. Notified the ED physician of patient departure. Patient refused to sign form prior to leaving. The patient left the Emergency Department ambulatory. --17:53 Little Keith R.N. Locked/Released at 07/25/2016 17:55 by Little Keith R.N.
--- NOTE | 2016-07-25 17:47 | ED NURSING NOTES ---
Clinical Report - Nurses [facility] [place] [address] 07/25/2016 16:43 Patient: MACK GIPSON TRIAGE Triage time 16:44. Acuity: LEVEL 3. Chief Complaint: BACK PAIN and (lower back pain with radiation down both legs. Hx of back surgery 3 years ago). --16:47 Little Keith R.N. 16:44 07/25/16. BP: 129/61. HR: 94. RR: 22. O2 saturation: 94% on room air. Temp: 98.3 F. Pain level now: 01/13. --16:47 Little Keith R.N. Weight: 68 kg stated. Height/Length: 70 inches Per Patient. BMI: 21.5. --16:47 Little Keith R.N. Medications None. --16:46 Little Keith R.N. Allergies Penicillin. --16:45 Little Keith R.N. 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 SOCIAL HX: Smoker- current status unknown. Alcohol use; consumes beer occasionally. --16:47 Little Keith R.N. Interventions ID band on patient. --16:47 Little Keith R.N. PHYSICAL ASSESSMENT To room via stretcher. GENERAL / NEURO / PSYCH: Alert. Oriented X 4. (intoxicated). RESPIRATORY: Respirations not labored. Breath sounds within normal limits. GI / : Abdomen soft. EXTREMITIES: Sensation intact in extremities. BACK: ( vertical scar lower back from previous surgery. well healed.). Normal inspection of the neck and back. --16:49 Little Keith R.N. NURSING PROGRESS NOTES Patient gowned. Reassurance given. Call light placed in reach. Side rails up. Bed placed in lowest position. Patient waiting for evaluation. --16:50 Little Keith R.N. ( mask placed on patient due to his cough. He states he has had this cough for at least six weeks.). --16:50 Little Keith R.N. ( patient had an episode of shaking, clenching his hands, would not respond to nurse. He turned over on his side, grabbed the railing and continued to shake. A second nurse was called into the room. The patient would not respond to verbal commands, though when asked by the MD to place a padron for a urine sample, the patient opened his eyes and said no padron. I refuse.). --16:57 Little Keith R.N. 16:46 07/25/2016 Site #1 started prior to arrival by EMS via IV in the left antecubital space with an 18g angiocath. Saline lock flushed with 10 mL saline. --17:11 Little Keith R.N. 17:06 07/25/2016 Toradol IVP 30 mg given over 3 minute(s) via site #1. --17:12 Little Keith R.N. Patient transported to radiology by wheelchair with tech. --17:17 Marci Ferguson R.N. 17:18 07/25/16. ( Pt was found standing at side of bed, pulled out IV and pulled off cardiac leads. Pt stated he "does not like the IV and the ECG leads." MD aware.). --17:18 Wily Kate R.N. 17:18 07/25/16. Patient and family informed about reason for wait and about plan of care. --17:18 Wily Kate R.N. 17:19 07/25/16. ED physician notified about patient's status. --17:19 Wily Kate R.N. ( M99 phoned to inquire about patient belongings. Informed they left them at his house.). --17:48 Littel Keith R.N. DISPOSITION / DISCHARGE Departure time: 1750. The patient left the Emergency Department against medical advice; patient was unaccompanied. The patient appears to be uncooperative. Notified the ED physician of patient departure. Patient refused to sign form prior to leaving. The patient left the Emergency Department ambulatory. --17:53 Little Keith R.N. Locked/Released at 07/25/2016 17:55 by Little Keith R.N.
--- NOTE | 2016-07-25 17:47 | ED CLINICAL REPORT ---
Clinical Report - Physicians/Mid Levels [facility] [address] [place] [address] 07/25/2016 16:43 Patient: MACK GIPSON Time Seen: 16:44; initial patient contact. Arrived- By ambulance. Historian- patient. HISTORY OF PRESENT ILLNESS Chief Complaint: BACK PAIN. It is described as being moderate in degree. The quality is noted to be aching. No radiation. Onset was today and it is still present. It was abrupt in onset. Modifying factors- worsened by bending over and lifting. Not relieved by anything. No bladder dysfunction, bowel dysfunction, sensory loss or motor loss. Patient notes an injury but denies injury to the head or chest. Mechanism of injury- he slipped and fell while walking. Similar symptoms previously: Many times. Recent medical care: The patient was seen recently at this facility in the emergency department (different complaint, eloped). REVIEW OF SYSTEMS The patient has had back pain. No difficulty walking. No weakness. All systems otherwise negative, except as recorded above. PAST HISTORY Chronic Back Pain. Narcotic Withdrawal. Suicidal Ideation. Alcohol Intoxication. Back Injury. Back Pain. ADDITIONAL SURGERIES: Back Surgery. Neck Surgery. SOCIAL HISTORY Smoker - current status unknown. Alcohol use. Patient is a longstanding alcoholic. ADDITIONAL NOTES The nursing notes have been reviewed with agreement regarding the chief complaint, PMH and patient medications and allergies. PHYSICAL EXAM Vital Signs: 07/25/2016 16:44 BP: 129/61. HR: 94. RR: 22. O2 saturation: 94%. Temp: 98.3 F. Pain level now: 9/10. Have been reviewed. Blood pressure normal. Heart rate normal. Respiratory rate normal. Temperature normal. Oxygen saturation: poor waveform. Appearance: Alert. Appears to be in pain. HEENT: Normal external inspection. CVS: Normal heart rate and rhythm. Heart sounds normal. Respiratory: No respiratory distress. Breath sounds normal. Back: Moderate soft tissue tenderness in the right lower and left lower lumbar area. Limited ROM in the back. No vertebral point tenderness or muscle spasm. Skin: Normal skin color. No rash. Neuro: Straight leg raising: negative on the right and negative on the left. Reflex exam: right patellar 2+, left patellar 2+, right Achilles 2+ and left Achilles 2+. LABS, X-RAYS, AND EKG LS-Spine X-rays: No fracture or subluxation. (L5S1 hardware in proper allignment). Views: AP and lateral. Technique: good. The X-rays were independently viewed by me and interpreted contemporaneously by me. Prior films were not available for comparison. Interpretation time: 17:37. PROGRESS AND PROCEDURES Course of Care: 16:54 07/25/16. Pt eloped yesterday w/ an IV in. Presents today w/ LBP. In the room pt had a shaking episode and became "unresponsive". Instructed staff to obtain immediate labs and cath urine for emergent w/u. When told he was getting a catheter he sat straight up and was fully awake. CLINICAL IMPRESSION Acute and chronic traumatic lumbar back pain associated with muscle strain. INSTRUCTIONS Follow-up: Screening today revealed the patient's blood pressure to be in the pre-hypertensive range. (Electronically signed by Roge Kearney Dr. 07/25/2016 22:21)
--- NOTE | 2016-07-25 22:21 | ED MED RECONCILIATION SUMMARY ---
Patient: MACK GIPSON Medication Reconciliation Report [facility] VisitID: [id number] [address] [place] [address] 50y, M Registration Date/Time: 07/25/2016 Weight: 68.0 kg Height/Length: 70 in. BMI: 21.5 ALLERGIES: Penicillin The patient's Home Medications are listed below: NONE. The source(s) of the original Home Medication information: Not obtained. The following Medications were given to the patient in the Emergency Department: Toradol [IVP] IVP 30 mg, administered: 07/25/2016 5:06:00 PM The following Medications were prescribed to the patient: None.
--- NOTE | 2016-07-25 22:21 | ED MAR SUMMARY ---
..... Medication Administration Record [facility] [address] [place] [address] Patient: MACK GIPSON Visit ID: [id number] 50y, M Weight: 68.0 kg Height/Length: 70 in BMI: 21.5 ALLERGIES: Penicillin Given 17:06 07/25/2016 Little Keith R.N. Medication Administered: TORADOL [IVP], Dose: 30 mg IVP over 3 minute(s), Site: #1 left AC. Medication Ordered: Toradol IV 30 mg (NOW).
--- NOTE | 2016-07-25 22:21 | ED MED RECONCILIATION SUMMARY ---
Patient: MACK GIPSON Medication Reconciliation Report [facility] VisitID: [id number] [address] [place] [address] 50y, M Registration Date/Time: 07/25/2016 Weight: 68.0 kg Height/Length: 70 in. BMI: 21.5 ALLERGIES: Penicillin The patient's Home Medications are listed below: NONE. The source(s) of the original Home Medication information: Not obtained. The following Medications were given to the patient in the Emergency Department: Toradol [IVP] IVP 30 mg, administered: 07/25/2016 5:06:00 PM The following Medications were prescribed to the patient: None.
--- NOTE | 2016-07-25 22:21 | ED MAR SUMMARY ---
..... Medication Administration Record [facility] [address] [place] [address] Patient: MACK GIPSON Visit ID: [id number] 50y, M Weight: 68.0 kg Height/Length: 70 in BMI: 21.5 ALLERGIES: Penicillin Given 17:06 07/25/2016 Little Keith R.N. Medication Administered: TORADOL [IVP], Dose: 30 mg IVP over 3 minute(s), Site: #1 left AC. Medication Ordered: Toradol IV 30 mg (NOW).
--- NOTE | 2016-07-25 22:21 | ED DISCHARGE INSTRUCTIONS ---
Patient: MACK GIPSON General Instructions [facility] VisitID: [id number] [place] [address] 50y, M Registration Date/Time: 07/25/2016 Acute and chronic traumatic lumbar back pain associated with muscle strain. INSTRUCTIONS Follow-up: Screening today revealed the patient's blood pressure to be in the pre-hypertensive range. ADDITIONAL INFORMATION Back Pain [Acute Or Chronic] Back pain is usually caused by an injury to the muscles or ligaments of the spine. Sometimes the disks that separate each bone in the spine may bulge and cause pain by pressing on a nearby nerve. Back pain may also appear after a sudden twisting/bending force (such as in a car accident), after a simple awkward movement, or lifting something heavy with poor body positioning. In either case, muscle spasm is often present and adds to the pain. Acute back pain usually gets better in one to two weeks. Back pain related to disk disease, arthritis in the spinal joints or spinal stenosis (narrowing of the spinal canal) can become chronic and last for months or years. Unless you had a physical injury (for example, a car accident or fall) X-rays are usually not ordered for the initial evaluation of back pain. If pain continues and does not respond to medical treatment, x-rays and other tests may be performed at a later time. Home Care: You may need to stay in bed the first few days. But, as soon as possible, begin sitting or walking to avoid problems with prolonged bed rest (muscle weakness, worsening back stiffness and pain, blood clots in the legs). When in bed, try to find a position of comfort. A firm mattress is best. Try lying flat on your back with pillows under your knees. You can also try lying on your side with your knees bent up towards your chest and a pillow between your knees. Avoid prolonged sitting. This puts more stress on the lower back than standing or walking. During the first two days after injury, apply an ICE PACK to the painful area for 20 minutes every 2-4 hours. This will reduce swelling and pain. HEAT (hot shower, hot bath or heating pad) works well for muscle spasm. You can start with ice, then switch to heat after two days. Some patients feel best alternating ice and heat treatments. Use the one method that feels the best to you. You may use acetaminophen (Tylenol) or ibuprofen (Motrin, Advil) to control pain, unless another pain medicine was prescribed. [NOTE: If you have chronic liver or kidney disease or ever had a stomach ulcer or GI bleeding, talk with your doctor before using these medicines.] Be aware of safe lifting methods and do not lift anything over 15 pounds until all the pain is gone. Follow Up with your doctor or this facility if your symptoms do not start to improve after one week. Physical therapy may be needed. [NOTE: If X-rays were taken, they will be reviewed by a radiologist. You will be notified of any new findings that may affect your care.] Get Prompt Medical Attention if any of the following occur: Pain becomes worse or spreads to your legs Weakness or numbness in one or both legs Loss of bowel or bladder control Numbness in the groin or genital area You have been given the following additional information: Back Pain (Acute Or Chronic) (Electronically signed by Roge Kearney Dr. 07/25/2016 22:21)
== END 2016-07-25 17:50 | disposition home or self-care (01) ==
LOC: ED SRH 16:42
DX: S39.012A Strain of muscle, fascia and tendon of lower back, initial encounter (principal); W19.XXXA Unspecified fall, initial encounter; Y92.9 Unspecified place or not applicable; Y99.8 Other external cause status; G89.29 Other chronic pain

== ENCOUNTER 2016-07-25 18:12 | Emergency (ER) | payer OTHER | END 2016-07-25 18:30 | disposition left against medical advice (07) | LOC: ED SRH 18:12 | DX: Z53.21 Procedure and treatment not carried out due to patient leaving prior to being seen by health care provider (principal) ==

== ENCOUNTER 2016-08-22 15:52 | Emergency (ER) | payer OTHER ==
--- NOTE | 2016-08-23 02:22 | ED NURSING NOTES ---
Clinical Report - Nurses [address] [address] [place] [address] 08/22/2016 15:52 Patient: MACK GIPSON TRIAGE Triage time 16:00. Acuity: LEVEL 3. Chief Complaint: SUICIDAL THOUGHTS. 16:18 08/22/16. Alert. SEPSIS SCREEN: Sepsis Screen. Negative (no infection suspected/documented). [place] COMA SCORE: [place] Coma Scale: 15- eyes open spontaneously (4); best verbal response- oriented x 4 (5); best motor response- obeys commands (6). --16:18 Araseli Poole R.N. 16:11 08/22/16. BP: 137/84. HR: 83. RR: 15. O2 saturation: 92%. Temp: 97.8 F. Pain level now: 12/13. --16:18 Araseli Poole R.N. Weight: 70.3 kg stated. Height/Length: 70 inches Per Patient. BMI: 22.2. --16:12 Araseli Poole R.N. Medications OxyCODONE HCl Oral. --16:13 Araseli Poole R.N. Allergies Penicillin. --16:13 Araseli Poole R.N. History Arrived by EMS. Historian: patient. Primary physician (Dr Brock). Onset: today. ( back pain). PAST MEDICAL HX: Immunizations: up-to-date. SOCIAL HX: Heavy tobacco smoker- less than 1 pack per day. Heavy alcohol use. FALL RISK ASSESSMENT: Fall risk assessment completed. No fall risk identified. NUTRITIONAL RISK ASSESSMENT: The nutritional risk assessment revealed no deficiencies. FUNCTIONAL ASSESSMENT: Functional assessment: no impairments noted. LEARNING NEEDS ASSESSMENT: The learning needs assessment revealed no barriers. SKIN INTEGRITY ASSESSMENT: Skin integrity risk assessment completed. No skin integrity risk identified. SELF HARM ASSESSMENT: A self harm assessment was performed. The patient answered "yes" to the question "Have you recently felt down, depressed, or hopeless?", "Have you noticed less interest or pleasure in doing things?", "Do you have thoughts of harming or killing yourself?" and "Have you ever tried to hurt yourself before today?" and "no" to the question "Are you here because you tried to hurt yourself?", "Have you recently had thoughts about harming or killing others?" and "Do you have any dangerous items in your possession?". He was placed in direct sight of the nurses station. Clothes and valuables were removed and placed in a safe. --16:18 Araseli Poole R.N. PROBLEMS: Lifestyle / Substance Problems. Chronic Back Pain. Narcotic Withdrawal. Suicidal Ideation. Alcohol Intoxication. Back Injury. Back Pain. --16:13 Araseli Poole R.N. ADDITIONAL SURGERIES: Back Surgery. Neck Surgery. --16:14 Araseli Poole R.N. Interventions ID band on patient. To treatment room. --16:18 Araseli Poole R.N. PHYSICAL ASSESSMENT 16:22 08/22/16. To room via stretcher. GENERAL / NEURO / PSYCH: Alert. Oriented X 4. He is awake and alert, is oriented and cooperative and has good eye contact. He exhibits normal consolability, appears depressed, exhibits normal mobility, appearance is consistent with stated age and is well dressed. He is sitting up. He has no indications of abuse. He has age-appropriate behavior. Speech within normal limits. Patient appears calm and cooperative. Patient appears well-nourished and neat and clean. RESPIRATORY: Respirations not labored. CVS: Capillary refill less than 2 seconds. SKIN: Skin intact. Skin is warm and dry. --16:22 Araseli Poole R.N. NURSING PROGRESS NOTES 16:42 08/22/16. Patient gowned. Suicide precautions initiated. ( Patient became increasingly agitated during triage and assessment. The patient stated "I really feel like I'm going to hurt myself." DUNIA Morales asked the patient if he felt like he could keep himself safe in the ED. The patient stated "yes, I can keep myself safe." This RN continued to assess the patient. The patient began opening and closing his fists and pressing his finger to his head. The patient stood up and began getting dressed. The patient stated, "I'm stepping out for a cigarette. Thank you, but you can't stop me." This RN explained that hospital policy does not allow him to leave for a cigarette. The patient continued to leave the room. A Charmaine Martinez was called. The patient was asked to move to room 16. Patient agreed to stay in the room and remain calm.). --16:42 Araseli Poole R.N. 16:46 08/22/16. ( Pt was walked to the restroom, provided a miniscule urine sample, walked with staff back to room 16. Within 1 minute he was wandering out of the room again. He was redirected back to the room. Again he came out of the room. Security was called and spoke with pt and explained the need for him to remain in his room.). --16:48 Andrew Rocha R.N. 17:20 08/22/2016 Site #1 started via IV in the left antecubital space with an 20g angiocath, with aseptic technique and good blood return; two attempts. Blood drawn: rainbow set. Labeled in the presence of the patient and sent to the lab. Saline lock flushed with 10 mL saline. --17:34 Andrew Rocha R.N. 17:31 08/22/2016 Started bag #1 1000 mL IV Fluids IV NS (Saline); bolus of 1000 mL over 1 hour(s) via site #1 via IV pump. Allergies verified and confirmed 5 rights. IV patency established. IV site checked: no pain, redness, or swelling. IV flushed thoroughly pre- and post-medication administration. --17:41 Araseli Poole R.N. 17:00. Alcohol level: 0.323 (breathalyzer). --17:51 Araseli Poole R.N. 18:01 08/22/16. Patient ID band checked for patient name and birthdate: patient confirmed. Instructions provided to collect clean catch urine and patient verbalized understanding. Clean catch urine collected with return of yellow-colored clear urine; sample sent to lab for urinalysis. Specimen labeled in the presence of the patient. --18:01 Araseli Poole R.N. 18:09 08/22/2016 Toradol IVP 30 mg given over 2 minute(s) via site #1. Allergies verified and confirmed 5 rights. IV patency established. IV site checked: no pain, redness, or swelling. IV flushed thoroughly pre- and post-medication administration. IVP given by RN. --18:19 Araseli Poole R.N. 18:14 08/22/2016 Tylenol (Acetaminophen) PO Tablets 650 mg given. Allergies verified and confirmed 5 rights. --18:19 Araseli Poole R.N. 19:08 08/22/16. Care transferred and report received (from DUNIA Morales. Assumed patient care). --19:08 Shelia Zamora R.N. 19:05 08/22/16. BP: 132/93. HR: 82. RR: 16. O2 saturation: 99%. Temp: deferred. Pain level now: 09/12. --19:24 Araseli Poole R.N. 20:03 08/22/2016 Site #1 removed. Catheter intact. Pressure dressing and bandage applied (Patient pulled out his IV). --20:06 Shelia Zamora R.N. 20:06 08/22/16. ( Patient escorted to bathroom by male staff). --20:06 Shelia Zamora R.N. 20:00. ( Patient). ( Patient DCed own IV. Requested to use bathroom.). --20:13 Hamilton Aaron R.N. ( Escorted to bathroom. Patient more calm now. Apologized for outburst earlier.). --20:14 Hamilton Aaron R.N. ( Back to room. Patient requested the door be left open. Explained that when his ETOH level is down we will call [facility].). --20:15 Hamilton Aaron R.N. ( Patient up, pacing in room). --20:23 Shelia Zamora R.N. ( BREATHALYZER .[id number]). --20:47 Gary Montejo, [employer] Clerk 21:16 08/22/16. ( Patient states is bored and pacing in room. Pt given magazine to read and warm blankets). --21:16 Shelia Zamora R.N. 21:46 08/22/2016 Zofran ODT (Ondansetron) PO Oral Disintegrating Tablets 4 mg given. --21:46 Hamilton Aaron R.N. ( Patient still pacing about room Voices no complaints). --22:16 Shelia Zamora R.N. 22:33 08/22/2016 NICOTINE Topical Patch/Pad 21 mg. Applied to the left upper arm. Allergies verified and confirmed 5 rights. --22:33 Shelia Zamora R.N. 01:47 08/23/16. ( No change in condition. Planning for 0230 breathalyzer test.). --01:47 Shelia Zamora R.N. ( BREATHALYZER .069). --02:17 Gary Montejo, [employer] Clerk. DISPOSITION / DISCHARGE 02:28 08/23/16. Condition at departure: improved and stable. The goals identified in the patient's plan of care were met. No learning barriers present. Discharge instructions provided and reviewed with the patient. Reviewed medication(s) side effects, precautions, dosing and course information. Reviewed referral to a primary care physician for followup. Summary of care provided to patient via paper. Patient verbalized understanding. Written instructions provided in Iranian. The patient was discharged home and unaccompanied at time of discharge. He left the Emergency Department ambulatory and via taxi. --02:28 Shelia Zamora R.N. 19:05 08/22/16. BP: 132/93. HR: 82. RR: 16. O2 saturation: 99%. Temp: deferred. Pain level now: 09/12. 16:11 08/22/16. BP: 137/84. HR: 83. RR: 15. O2 saturation: 92%. Temp: 97.8 F. Pain level now: 12/13. --02:28 Shelia Zamora R.N. Departure time: 02:Aug 23 2016. --02:28 Shelia Zamora R.N. Locked/Released at 08/23/2016 2:29 by Shelia Zamora R.N.
--- NOTE | 2016-08-23 02:22 | ED ORDER SUMMARY ---
..... Patient: MACK GIPSON OrderSheet [facility] VisitID: [id number] [place] [address] 50y, M Registration Date/Time: 08/22/2016 ORDER SHEET Weight: 70.3 kg (stated) Allergies: Penicillin GENERAL ORDERS: CBC w Diff Urgent (16:38 08/22/2016 EKoroleva P.A.-C) (Ack 16:40 PWeiler ER Tech1) (17:30 JSimbeck R.N.) CMP Urgent (16:38 08/22/2016 EKoroleva P.A.-C) (Ack 16:40 PWeiler ER Tech1) (17:30 JSimbeck R.N.) Urine Drug Screen Urgent (16:38 08/22/2016 EKoroleva P.A.-C) (Ack 16:40 PWeiler ER Tech1) (17:30 JSimbeck R.N.) Breathalyzer (16:38 08/22/2016 EKoroleva P.A.-C) (17:38 RMarsden R.N.) Lipase Urgent (16:38 08/22/2016 EKoroleva P.A.-C) (Ack 16:40 PWeiler ER Tech1) (17:30 JSimbeck R.N.) Breathalyzer (20:31 08/22/2016 EKoroleva P.A.-C) (Ack 20:40 EInderbitzen R.N.) (20:52 EInderbitzen R.N.) MEDICATION ORDERS: Tylenol PO 650 mg (NOW) (18:05 08/22/2016 EKoroleva P.A.-C) (Ack 18:08 RMarsden R.N.) (18:19 RMarsden R.N.) Zofran ODT PO 8 mg (NOW) (21:39 08/22/2016 EKoroleva P.A.-C) (21:46 GMarshall R.N.) Nicotine Topical 21 mg (NOW) (22:30 08/22/2016 Kaya Russell) (22:33 EInderbitzen R.N.) IV FLUIDS: IV NS : initial bolus 1000 mL (1000 mL/hr), then 1000 mL/hr for X1 (NOW); Ra (16:38 08/22/2016 EKoroleva P.A.-C) (Ack 16:43 RMarsden R.N.) (17:41 RMarsden R.N.) Toradol IV 30 mg (NOW) (18:05 08/22/2016 EKoroleva P.A.-C) (Ack 18:08 RMarsden R.N.) (18:19 RMarsden R.N.) ORDER SHEET NOTES: [Electronically signed by Shelia Zamora R.N. (02:29 08/23/2016)] [Electronically signed by Caio Michaels Dr. (00:02 08/25/2016)] [Electronically locked/signed by Shelia Zamora R.N. (02:29 08/23/2016)]
--- NOTE | 2016-08-23 02:22 | ED CLINICAL REPORT ---
Clinical Report - Physicians/Mid Levels [facility] [address] [place] [address] 08/22/2016 15:52 [id number] Time Seen: 16:04 Aug 22 2016. Arrived- By ambulance. Historian- patient and EMS personnel. HISTORY OF PRESENT ILLNESS Chief Complaint: SUICIDAL THOUGHTS. This started just prior to arrival. No situational problems. He has not exhibited a behavior change. Recent alcohol consumption. Has been eating or sleeping or not been depressed. No paranoia or suicidal thoughts. The symptoms are described as moderate. No injury is present. patient reports suicidal ideation with no direct plan, as he has had bothersome back pain over a long period of time. REVIEW OF SYSTEMS No headache, dizziness or skin rash. All systems otherwise negative, except as recorded above. PAST HISTORY See nurses notes. Medications: OxyCODONE HCl Oral. Allergies: Penicillin. SOCIAL HISTORY Smoker- current status unknown. Alcohol use. No drug use. Has social support. Has place to stay. ADDITIONAL NOTES The nursing notes have been reviewed. PHYSICAL EXAM Vital Signs: 08/22/2016 16:11 BP: 137/84. HR: 83. RR: 15. O2 saturation: 92%. Temp: 97.8 F. Pain level now: 8/10. Appearance: Alert. No acute distress. Appearance is normal. Does not appear to be anxious. Eyes: Pupils equal, round and reactive to light. CVS: Normal heart rate and rhythm. Heart sounds normal. Respiratory: Breath sounds normal. Chest nontender. Abdomen: Soft. Skin: Skin warm and dry. Normal skin color. Normal skin turgor. Psych / Neuro: Mood and affect normal. Flat affect. Not depressed. He is communicative. Cranial nerves normal (as tested). LABS, X-RAYS, AND EKG Laboratory Tests: CBC w Diff: (YANI: 08/22/2016 17:20) ( MsgRcvd 08/22/2016 17:38) Final results Test Result Flag Units (Reference) WHITE BLOOD COUNT 4.6 K/uL (4.5-11.5) RED BLOOD COUNT 4.85 M/uL (4.50-5.90) HEMOGLOBIN 16.2 gm/dL (13.5-17.5) HEMATOCRIT 48.1 % (41.0-53.0) MEAN CELL VOLUME 99 fL (80-100) MEAN CORPUSCULAR HGB 33 pg (26-34) MEAN CORPUSCULAR HGB CONC 34 g/dL (31-37) RED CELL DISTRIBUTION WIDTH 15.0 H % (11.6-14.8) PLATELET COUNT 267 K/uL (150-400) NEUTROPHIL % 51.1 % (50-75) LYMPH % 40.8 H % (25-40) MONO % 5.9 % (3-14) EOSINOPHIL % 1.5 % (0-4) BASOPHIL % 0.7 % (0-2) Urine Drug Screen: (YANI: 08/22/2016 17:55) ( [facility] 08/22/2016 18:22) Final results Test Result Flag Units (Reference) AMPHETAMINE/METHAMPHETAMINE NEGATIVE (NEGATIVE) BARBITURATE NEGATIVE (NEGATIVE) BENZODIAZEPINE NEGATIVE (NEGATIVE) CANNABINOID NEGATIVE (NEGATIVE) COCAINE NEGATIVE (NEGATIVE) ECSTASY NEGATIVE (NEGATIVE) METHADONE NEGATIVE (NEGATIVE) OPIATE NEGATIVE (NEGATIVE) The urine drug screen is a qualitative screening test fordrug overdose and abuse. All screen results should beconsidered as presumptive.Drugs screened for are as follows:BenzodiazepinesCocaineAmphetamines/MetamphetaminesTHC (Tetrahydrocannabinol)OpiatesBarbituratesEcstasyMethadonePositive results are unconfirmed. For confirmation, notifythe lab for the specimen to be sent to the reference lab.All confirmations must be performed by a differentmethodology.The ingestion of natural herbal and plant productscontaining Ephedra/Ephedra metabolites can produce in urineone or more substances capable of cross reacting withamphetamine/methamphetamine immunoassays. These testsprovide a preliminary result only. A more specificalternative chemical method must be used to obtain aconfirmed analytical result. CMP: (YANI: 08/22/2016 17:20) ( [facility] 08/22/2016 18:04) Final results Test Result Flag Units (Reference) GLUCOSE 86 mg/dL (70-110) BUN 9 mg/dL (7-18) CREATININE 0.9 mg/dL (0.6-1.3) Estimated GFR >60 mL/min Estimated GFR- >60 mL/min Note: Persistent reduction over 3 months in eGFR<60 mL/min/1.73 m2 defines CKD. Patients with eGFR values>=60 mL/min/1.73 m2 may also have CKD if evidence ofpersistent proteinuria. Additional information may be foundat www.kidney.org. SODIUM 143 mmol/L (136-145) POTASSIUM 3.8 mmol/L (3.5-5.1) CHLORIDE 106 mmol/L (98-107) CARBON DIOXIDE 24 mmol/L (21-32) CALCIUM 9.3 mg/dL (8.5-10.1) TOTAL PROTEIN 8.3 H g/dL (6.4-8.2) ALBUMIN 4.3 g/dL (3.3-5.0) BILIRUBIN, TOTAL 0.6 mg/dL (0.0-1.0) ALKALINE PHOSPHATASE 59 U/L (46-116) AST (SGOT) 99 H U/L (15-37) ALT (SGPT) 76 U/L (12-78) LIPASE 218 U/L (73-393) . PROGRESS AND PROCEDURES Course of Care: Pt somewhat cooperative, anxious pacing in and out of room. ETOH in the ER. Reported suicidal ideation. He had no plan. the patient is a pleasant 50-year-old male presented for evaluation of suicidal ideation. Patient does not have a plan for the suicide. Sign out was obtained from theprevious provider. I have introduced myself to the patient and performed my own independent history and examination. Agree with the assessment and plan. Patient is to be monitored until he is clinically sober and below the legal limit. Patient is then to bereevaluated for any signs of danger to self or other people. The patient was reevaluated after the patient's blood alcohol level was below the limit. Patient is clinically sober and had a discussion with the patient in regards to events that happened earlier today. Patient reports that he had drank too much alcohol. Patient reports that he normally does not do this. No history of alcohol dependence. Patient states that heis having situational problems with his chronic lower back pain and wanted to get off of the "pain pills." No suicidal ideation. No othersigns of injury. Patient is not having any hallucinations or delusions. Patient is not reporting any homicidal ideation. Patient does not appear to be a danger to self or others. No signs of cord compromise with the patient in regards to his chronic back pain. He reports no saddle anesthesia, incontinence, retention, fever, or weakness. Patient is a stable outpatient candidate. Discussed the patient in regards to his workup here in the emergency department including home care, follow-up, and return precautions. All questions have been answered. The patient expressedunderstanding of these instructions and was agreeable to them. 08/22/2016 19:05 BP: 132/93. HR: 82. RR: 16. O2 saturation: 99%. Pain level now: 5/10. Patient is stable. Disposition: Discharged. Condition: good. CLINICAL IMPRESSION Adjustment disorder with depressed mood (acute). 08/22/2016 16:11 BP: 137/84. HR: 83. RR: 15. O2 saturation: 92%. Temp: 97.8 F. Pain level now: 8/10. Blood pressure normal. Oxygen saturation normal. Uncomplicated alcohol intoxication (acute). Narcotic withdrawal (acute). INSTRUCTIONS Warnings: GENERAL WARNINGS: Return or contact your physician immediately if your condition worsens or changes unexpectedly, if not improving as expected, or if other problems arise. Specifically return if pain, vomiting, bleeding, breathing difficulty or fever. Your Current Medications: CONTINUE TAKING THE FOLLOWING MEDICATIONS: OxyCODONE HCl Oral. Prescription Medications: Zofran (orally disintegrating tablets) 4 mg: take 1 orally every 8 hours as needed for nausea and vomiting. Dispense ten (10). No refill. Substitution is permissible. Follow-up: Return to the emergency department as needed. Follow up with your doctor in three days. Reason for referral: recheck today's concerns. Summary of care provided to patient via paper. Screening today revealed the patient's blood pressure to be in the normal range. The patient should follow up with a primary care provider for blood pressure management. Understanding of the discharge instructions verbalized by patient. (Electronically signed by Caio Michaels Dr. 08/25/2016 0:02)
--- NOTE | 2016-08-23 02:22 | ED ORDER SUMMARY ---
..... Patient: MACK GIPSON OrderSheet [facility] VisitID: [id number] [place] [address] 50y, M Registration Date/Time: 08/22/2016 ORDER SHEET Weight: 70.3 kg (stated) Allergies: Penicillin GENERAL ORDERS: CBC w Diff Urgent (16:38 08/22/2016 EKoroleva P.A.-C) (Ack 16:40 PWeiler ER Tech1) (17:30 JSimbeck R.N.) CMP Urgent (16:38 08/22/2016 EKoroleva P.A.-C) (Ack 16:40 PWeiler ER Tech1) (17:30 JSimbeck R.N.) Urine Drug Screen Urgent (16:38 08/22/2016 EKoroleva P.A.-C) (Ack 16:40 PWeiler ER Tech1) (17:30 JSimbeck R.N.) Breathalyzer (16:38 08/22/2016 EKoroleva P.A.-C) (17:38 RMarsden R.N.) Lipase Urgent (16:38 08/22/2016 EKoroleva P.A.-C) (Ack 16:40 PWeiler ER Tech1) (17:30 JSimbeck R.N.) Breathalyzer (20:31 08/22/2016 EKoroleva P.A.-C) (Ack 20:40 EInderbitzen R.N.) (20:52 EInderbitzen R.N.) MEDICATION ORDERS: Tylenol PO 650 mg (NOW) (18:05 08/22/2016 EKoroleva P.A.-C) (Ack 18:08 RMarsden R.N.) (18:19 RMarsden R.N.) Zofran ODT PO 8 mg (NOW) (21:39 08/22/2016 EKoroleva P.A.-C) (21:46 GMarshall R.N.) Nicotine Topical 21 mg (NOW) (22:30 08/22/2016 Kaya Russell) (22:33 EInderbitzen R.N.) IV FLUIDS: IV NS : initial bolus 1000 mL (1000 mL/hr), then 1000 mL/hr for X1 (NOW); Ra (16:38 08/22/2016 EKoroleva P.A.-C) (Ack 16:43 RMarsden R.N.) (17:41 RMarsden R.N.) Toradol IV 30 mg (NOW) (18:05 08/22/2016 EKoroleva P.A.-C) (Ack 18:08 RMarsden R.N.) (18:19 RMarsden R.N.) ORDER SHEET NOTES: [Electronically signed by Shelia Zamora R.N. (02:29 08/23/2016)] [Electronically signed by Caio Michaels Dr. (00:02 08/25/2016)] [Electronically locked/signed by Shelia Zamora R.N. (02:29 08/23/2016)]
--- NOTE | 2016-08-25 00:02 | ED MED RECONCILIATION SUMMARY ---
Patient: MACK GIPSON Medication Reconciliation Report [facility] VisitID: [id number] [address] [place] [address] 50y, M Registration Date/Time: 08/22/2016 Weight: 70.3 kg Height/Length: 70 in. BMI: 22.2 ALLERGIES: Penicillin The patient's Home Medications are listed below: CONTINUE TAKING THE FOLLOWING MEDICATIONS: OxyCODONE HCl Oral The source(s) of the original Home Medication information: Not obtained. The following Medications were given to the patient in the Emergency Department: IV NS IV Fluids bolus 1000 mL over 1 hour(s), administered: 08/22/2016 5:31:00 PM Toradol [IVP] IVP 30 mg, administered: 08/22/2016 6:09:00 PM Tylenol [PO] PO 650 mg, administered: 08/22/2016 6:14:00 PM Zofran ODT [PO] PO 4 mg, administered: 08/22/2016 9:46:00 PM NICOTINE [TOPICAL] Topical 21 mg, administered: 08/22/2016 10:33:00 PM The following Medications were prescribed to the patient: Zofran (orally disintegrating tablets) 4 mg: take 1 orally every 8 hours as needed for nausea and vomiting. Dispense ten (10). No refill. Substitution is permissible. -- Caio Michaels Dr.
--- NOTE | 2016-08-25 00:02 | ED MAR SUMMARY ---
..... Medication Administration Record [facility] [address] [place] [address] Patient: MACK GIPSON Visit ID: [id number] 50y, M Weight: 70.3 kg Height/Length: 70 in BMI: 22.2 ALLERGIES: Penicillin Start 17:31 08/22/2016 Araseli Poole R.N. Medication Administered: IV NS (SALINE), Dose: IV Fluids, Bolus: 1000 mL over 1 hour(s), Dispensed: 1000 mL bag, Site: #1 left AC. Medication Ordered: IV NS : initial bolus 1000 mL (1000 mL/hr), then 1000 mL/hr for X1 (NOW); Ra. Given 18:09 08/22/2016 Araseli Poole R.N. Medication Administered: TORADOL [IVP], Dose: 30 mg IVP over 2 minute(s), Site: #1 left AC. Medication Ordered: Toradol IV 30 mg (NOW). Given 18:14 08/22/2016 Araseli Poole R.N. Medication Administered: TYLENOL [PO] (ACETAMINOPHEN), Dose: 650 mg Tablets PO. Medication Ordered: Tylenol PO 650 mg (NOW). Given 21:46 08/22/2016 Hamilton Aaron R.N. Medication Administered: ZOFRAN ODT [PO] (ONDANSETRON), Dose: 4 mg Oral Disintegrating Tablets PO. Medication Ordered: Zofran ODT PO 8 mg (NOW). Given 22:33 08/22/2016 Shelia Zamora R.N. Medication Administered: NICOTINE [TOPICAL], Dose: 21 mg Patch/Pad Topical. Medication Ordered: Nicotine Topical 21 mg (NOW).
--- NOTE | 2016-08-25 00:02 | ED MED RECONCILIATION SUMMARY ---
Patient: MACK GIPSON Medication Reconciliation Report [facility] VisitID: [id number] [address] [place] [address] 50y, M Registration Date/Time: 08/22/2016 Weight: 70.3 kg Height/Length: 70 in. BMI: 22.2 ALLERGIES: Penicillin The patient's Home Medications are listed below: CONTINUE TAKING THE FOLLOWING MEDICATIONS: OxyCODONE HCl Oral The source(s) of the original Home Medication information: Not obtained. The following Medications were given to the patient in the Emergency Department: IV NS IV Fluids bolus 1000 mL over 1 hour(s), administered: 08/22/2016 5:31:00 PM Toradol [IVP] IVP 30 mg, administered: 08/22/2016 6:09:00 PM Tylenol [PO] PO 650 mg, administered: 08/22/2016 6:14:00 PM Zofran ODT [PO] PO 4 mg, administered: 08/22/2016 9:46:00 PM NICOTINE [TOPICAL] Topical 21 mg, administered: 08/22/2016 10:33:00 PM The following Medications were prescribed to the patient: Zofran (orally disintegrating tablets) 4 mg: take 1 orally every 8 hours as needed for nausea and vomiting. Dispense ten (10). No refill. Substitution is permissible. -- Caio Michaels Dr.
--- NOTE | 2016-08-25 00:02 | ED DISCHARGE INSTRUCTIONS ---
Patient: MACK GIPSON General Instructions [facility] VisitID: [id number] [place] [address] 50y, M Registration Date/Time: 08/22/2016 Adjustment disorder with depressed mood (acute). 08/22/2016 16:11 BP: 137/84. HR: 83. RR: 15. O2 saturation: 92%. Temp: 97.8 F. Pain level now: 8/10. Blood pressure normal. Oxygen saturation normal. Uncomplicated alcohol intoxication (acute). Narcotic withdrawal (acute). INSTRUCTIONS Warnings: GENERAL WARNINGS: Return or contact your physician immediately if your condition worsens or changes unexpectedly, if not improving as expected, or if other problems arise. Specifically return if pain, vomiting, bleeding, breathing difficulty or fever. Your Current Medications: CONTINUE TAKING THE FOLLOWING MEDICATIONS: OxyCODONE HCl Oral. Prescription Medications: Zofran (orally disintegrating tablets) 4 mg: take 1 orally every 8 hours as needed for nausea and vomiting. Dispense ten (10). No refill. Substitution is permissible. Follow-up: Return to the emergency department as needed. Follow up with your doctor in three days. Reason for referral: recheck today's concerns. Summary of care provided to patient via paper. Screening today revealed the patient's blood pressure to be in the normal range. The patient should follow up with a primary care provider for blood pressure management. Understanding of the discharge instructions verbalized by patient. ADDITIONAL INFORMATION Adjustment Disorder An adjustment disorder is a condition that results from having a hard time coping with the normal stresses of life. You may feel you have too much to do and cant get it all done. These feelings may be triggered by divorce, job loss, someone you know dying, or by a positive event like getting a new job or getting . These feelings may interfere with your relationships at home and at work. With this condition, it is common to feel sad, guilty, hopeless and restless. These feelings may continue for weeks or months. It can be helpful to identify what is causing the additional stress and takes steps to get extra support. If new stressful events do not occur, it is likely that you will start feeling better within six months. Home Care: If you have been given a prescription for medicine, take it as directed. It helps to talk about your feelings and thoughts with family or friends that understand and support you. Follow Up with your doctor or therapist as advised by our staff. Let them know if this condition lasts more than six months without sign of improvement. For more information, contact the National [place] on Mental Illness at 680-969-0054 or visit www.john.org. Get Prompt Medical Attention if any of the following occur: Worsening depression or anxiety Feeling out of control Thoughts of harming yourself or another Being unable to care for yourself Alcohol Intoxication Alcohol intoxication occurs when you drink alcohol faster than your liver can remove it from your system. Alcohol intoxication affects your judgment and coordination. Very high blood alcohol levels can cause coma, very slow breathing and even . If you drink alcohol every day, this may gradually cause permanent damage to your liver, brain, heart, pancreas and other organs. Alcohol use during may cause permanent damage to the growing baby. Home Care: Do not drink any more alcohol. DO NOT DRIVE until all effects of the alcohol have worn off. Get lots of rest over the next few days. Drink plenty of water and other non-alcoholic liquids. Try to eat regular meals. If you have been drinking heavily on a daily basis, you may go through alcohol withdrawl. This is also called the shakes or DTs. The usual symptoms last 3 to 4 days and may include nervousness, shakiness, nausea, sweating or sleeplessness. During this time, it is best that you stay with family or friends who can help and support you. You can also admit yourself to a residential detox program. If your symptoms are severe, contact your doctor for medicines to help. Follow Up: If alcohol is causing a problem in your life, these and other organizations can help you: Alcoholics Anonymous offers support through a self-help fellowship. There are no dues or fees. See the Yellow Pages and call for time and place of meetings. www.aa.org Naina offers support to families of alcohol users. 691.866.6189 www.al-anon.org National [place] On Alcoholism And Drug Dependence 187-024-6962 www.ncadd.org There are also inpatient or residential alcohol detox programs. Check the Internet or phonebook Yellow Pages under Drug Abuse & Treatment Centers. Get Prompt Medical Attention if any of the following occur: there) Ondansetron Oral disintegrating tablet What is this medicine? ONDANSETRON (on JESS se erasto) is used to treat nausea and vomiting caused by chemotherapy. It is also used to prevent or treat nausea and vomiting after surgery. How should I use this medicine? These tablets are made to dissolve in the mouth. Do not try to push the tablet through the foil backing. With dry hands, peel away the foil backing and gently remove the tablet. Place the tablet in the mouth and allow it to dissolve, then swallow. While you may take these tablets with water, it is not necessary to do so. Talk to your linux systems engineer regarding the use of this medicine in children. Special care may be needed. What side effects may I notice from receiving this medicine? Side effects that you should report to your doctor or health home health caregiver as soon as possible: allergic reactions like skin rash, itching or hives, swelling of the face, lips, or tongue breathing problems dizziness fast or irregular heartbeat feeling faint or lightheaded, falls fever and chills swelling of the hands and feet tightness in the chest Side effects that usually do not require medical attention (report to your doctor or health home health caregiver if they continue or are bothersome): constipation or diarrhea headache What may interact with this medicine? Do not take this medicine with any of the following medications: -apomorphine -cisapride -dofetilide -dronedarone -pimozide -thioridazine -ziprasidone This medicine may also interact with the following medications: -carbamazepine -phenytoin -rifampicin -tramadol -other medicines that prolong the QT interval (cause an abnormal heart rhythm) What if I miss a dose? If you miss a dose, take it as soon as you can. If it is almost time for your next dose, take only that dose. Do not take double or extra doses. Where should I keep my medicine? Keep out of the reach of children. Store between 2 and 30 degrees C (36 and 86 degrees F). Throw away any unused medicine after the expiration date. What should I tell my health care provider before I take this medicine? They need to know if you have any of these conditions: heart disease history of irregular heartbeat liver disease low levels of magnesium or potassium in the blood an unusual or allergic reaction to ondansetron, granisetron, other medicines, foods, dyes, or preservatives or trying to get breast-feeding What should I watch for while using this medicine? Check with your doctor or health home health caregiver as soon as you can if you have any sign of an allergic reaction. You have been given the following additional information: Adjustment Disorder Alcohol Intoxication Ondansetron Oral disintegrating tablet (Electronically signed by Caio Michaels Dr. 08/25/2016 0:02)
--- NOTE | 2016-08-25 00:02 | ED DISCHARGE INSTRUCTIONS ---
Patient: MACK GIPSON General Instructions [facility] VisitID: [id number] [place] [address] 50y, M Registration Date/Time: 08/22/2016 Adjustment disorder with depressed mood (acute). 08/22/2016 16:11 BP: 137/84. HR: 83. RR: 15. O2 saturation: 92%. Temp: 97.8 F. Pain level now: 8/10. Blood pressure normal. Oxygen saturation normal. Uncomplicated alcohol intoxication (acute). Narcotic withdrawal (acute). INSTRUCTIONS Warnings: GENERAL WARNINGS: Return or contact your physician immediately if your condition worsens or changes unexpectedly, if not improving as expected, or if other problems arise. Specifically return if pain, vomiting, bleeding, breathing difficulty or fever. Your Current Medications: CONTINUE TAKING THE FOLLOWING MEDICATIONS: OxyCODONE HCl Oral. Prescription Medications: Zofran (orally disintegrating tablets) 4 mg: take 1 orally every 8 hours as needed for nausea and vomiting. Dispense ten (10). No refill. Substitution is permissible. Follow-up: Return to the emergency department as needed. Follow up with your doctor in three days. Reason for referral: recheck today's concerns. Summary of care provided to patient via paper. Screening today revealed the patient's blood pressure to be in the normal range. The patient should follow up with a primary care provider for blood pressure management. Understanding of the discharge instructions verbalized by patient. ADDITIONAL INFORMATION Adjustment Disorder An adjustment disorder is a condition that results from having a hard time coping with the normal stresses of life. You may feel you have too much to do and cant get it all done. These feelings may be triggered by divorce, job loss, someone you know dying, or by a positive event like getting a new job or getting . These feelings may interfere with your relationships at home and at work. With this condition, it is common to feel sad, guilty, hopeless and restless. These feelings may continue for weeks or months. It can be helpful to identify what is causing the additional stress and takes steps to get extra support. If new stressful events do not occur, it is likely that you will start feeling better within six months. Home Care: If you have been given a prescription for medicine, take it as directed. It helps to talk about your feelings and thoughts with family or friends that understand and support you. Follow Up with your doctor or therapist as advised by our staff. Let them know if this condition lasts more than six months without sign of improvement. For more information, contact the National [place] on Mental Illness at 742-774-9733 or visit www.john.org. Get Prompt Medical Attention if any of the following occur: Worsening depression or anxiety Feeling out of control Thoughts of harming yourself or another Being unable to care for yourself Alcohol Intoxication Alcohol intoxication occurs when you drink alcohol faster than your liver can remove it from your system. Alcohol intoxication affects your judgment and coordination. Very high blood alcohol levels can cause coma, very slow breathing and even . If you drink alcohol every day, this may gradually cause permanent damage to your liver, brain, heart, pancreas and other organs. Alcohol use during may cause permanent damage to the growing baby. Home Care: Do not drink any more alcohol. DO NOT DRIVE until all effects of the alcohol have worn off. Get lots of rest over the next few days. Drink plenty of water and other non-alcoholic liquids. Try to eat regular meals. If you have been drinking heavily on a daily basis, you may go through alcohol withdrawl. This is also called the shakes or DTs. The usual symptoms last 3 to 4 days and may include nervousness, shakiness, nausea, sweating or sleeplessness. During this time, it is best that you stay with family or friends who can help and support you. You can also admit yourself to a residential detox program. If your symptoms are severe, contact your doctor for medicines to help. Follow Up: If alcohol is causing a problem in your life, these and other organizations can help you: Alcoholics Anonymous offers support through a self-help fellowship. There are no dues or fees. See the Yellow Pages and call for time and place of meetings. www.aa.org [employer] offers support to families of alcohol users. 835.397.3904 www.al-anon.org National [place] On Alcoholism And Drug Dependence 580-030-3290 www.ncadd.org There are also inpatient or residential alcohol detox programs. Check the Internet or phonebook Yellow Pages under Drug Abuse & Treatment Centers. Get Prompt Medical Attention if any of the following occur: there) Ondansetron Oral disintegrating tablet What is this medicine? ONDANSETRON (on JESS se erasto) is used to treat nausea and vomiting caused by chemotherapy. It is also used to prevent or treat nausea and vomiting after surgery. How should I use this medicine? These tablets are made to dissolve in the mouth. Do not try to push the tablet through the foil backing. With dry hands, peel away the foil backing and gently remove the tablet. Place the tablet in the mouth and allow it to dissolve, then swallow. While you may take these tablets with water, it is not necessary to do so. Talk to your hemp fiber taker off regarding the use of this medicine in children. Special care may be needed. What side effects may I notice from receiving this medicine? Side effects that you should report to your doctor or health child care supervisor as soon as possible: allergic reactions like skin rash, itching or hives, swelling of the face, lips, or tongue breathing problems dizziness fast or irregular heartbeat feeling faint or lightheaded, falls fever and chills swelling of the hands and feet tightness in the chest Side effects that usually do not require medical attention (report to your doctor or health child care supervisor if they continue or are bothersome): constipation or diarrhea headache What may interact with this medicine? Do not take this medicine with any of the following medications: -apomorphine -cisapride -dofetilide -dronedarone -pimozide -thioridazine -ziprasidone This medicine may also interact with the following medications: -carbamazepine -phenytoin -rifampicin -tramadol -other medicines that prolong the QT interval (cause an abnormal heart rhythm) What if I miss a dose? If you miss a dose, take it as soon as you can. If it is almost time for your next dose, take only that dose. Do not take double or extra doses. Where should I keep my medicine? Keep out of the reach of children. Store between 2 and 30 degrees C (36 and 86 degrees F). Throw away any unused medicine after the expiration date. What should I tell my health care provider before I take this medicine? They need to know if you have any of these conditions: heart disease history of irregular heartbeat liver disease low levels of magnesium or potassium in the blood an unusual or allergic reaction to ondansetron, granisetron, other medicines, foods, dyes, or preservatives or trying to get breast-feeding What should I watch for while using this medicine? Check with your doctor or health child care supervisor as soon as you can if you have any sign of an allergic reaction. You have been given the following additional information: Adjustment Disorder Alcohol Intoxication Ondansetron Oral disintegrating tablet (Electronically signed by Caio Michaels Dr. 08/25/2016 0:02)
--- NOTE | 2016-08-25 00:02 | ED MAR SUMMARY ---
..... Medication Administration Record [facility] [address] [place] [address] Patient: MACK GIPSON Visit ID: [id number] 50y, M Weight: 70.3 kg Height/Length: 70 in BMI: 22.2 ALLERGIES: Penicillin Start 17:31 08/22/2016 Araseli Poole R.N. Medication Administered: IV NS (SALINE), Dose: IV Fluids, Bolus: 1000 mL over 1 hour(s), Dispensed: 1000 mL bag, Site: #1 left AC. Medication Ordered: IV NS : initial bolus 1000 mL (1000 mL/hr), then 1000 mL/hr for X1 (NOW); Ra. Given 18:09 08/22/2016 Araseli Poole R.N. Medication Administered: TORADOL [IVP], Dose: 30 mg IVP over 2 minute(s), Site: #1 left AC. Medication Ordered: Toradol IV 30 mg (NOW). Given 18:14 08/22/2016 Araseli Poole R.N. Medication Administered: TYLENOL [PO] (ACETAMINOPHEN), Dose: 650 mg Tablets PO. Medication Ordered: Tylenol PO 650 mg (NOW). Given 21:46 08/22/2016 Hamilton Aaron R.N. Medication Administered: ZOFRAN ODT [PO] (ONDANSETRON), Dose: 4 mg Oral Disintegrating Tablets PO. Medication Ordered: Zofran ODT PO 8 mg (NOW). Given 22:33 08/22/2016 Shelia Zamora R.N. Medication Administered: NICOTINE [TOPICAL], Dose: 21 mg Patch/Pad Topical. Medication Ordered: Nicotine Topical 21 mg (NOW).
== END 2016-08-23 02:29 | disposition home or self-care (01) ==
LOC: ED SRH 15:52
DX: F43.21 Adjustment disorder with depressed mood (principal); F10.120 Alcohol abuse with intoxication, uncomplicated; F11.23 Opioid dependence with withdrawal; Z88.0 Allergy status to penicillin; F17.210 Nicotine dependence, cigarettes, uncomplicated
CPT/HCPCS: 90100; 92235; 92760; 92761; 92762; 92763; 92764; 92765; 92766; 92767; 95059

== ENCOUNTER 2016-08-26 15:21 | Emergency (ER) | payer OTHER ==
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
--- NOTE | 2016-08-26 20:02 | ED MAR SUMMARY ---
..... Medication Administration Record [facility] [address], [place] [id number] Patient: MACK GIPSON Visit ID: [id number] 50y, M Weight: 68.0 kg Height/Length: 70 in BMI: 21.5 ALLERGIES: Penicillins
--- NOTE | 2016-08-26 20:02 | ED MED RECONCILIATION SUMMARY ---
Patient: MACK GIPSON Medication Reconciliation Report [facility] VisitID: [id number] [address] [place] [address] 50y, M Registration Date/Time: 08/26/2016 Weight: 68.0 kg Height/Length: 70 in. BMI: 21.5 ALLERGIES: Penicillins The patient's Home Medications are listed below: NONE. The source(s) of the original Home Medication information: patient The following Medications were given to the patient in the Emergency Department: None. The following Medications were prescribed to the patient: None.
--- NOTE | 2016-08-26 20:02 | ED DISCHARGE INSTRUCTIONS ---
Patient: MACK GIPSON General Instructions [facility] VisitID: [id number] [place] [address] 50y, M Registration Date/Time: 08/26/2016 Chronic substance abuse- alcohol, oxycodone with intoxication. INSTRUCTIONS (pt left AMA, signed out against advice. urged to seek care at [place] [facility] as [facility] are [facility] ADDITIONAL INFORMATION Alcohol Intoxication Alcohol intoxication occurs when you drink alcohol faster than your liver can remove it from your system. Alcohol intoxication affects your judgment and coordination. Very high blood alcohol levels can cause coma, very slow breathing and even . If you drink alcohol every day, this may gradually cause permanent damage to your liver, brain, heart, pancreas and other organs. Alcohol use during may cause permanent damage to the growing baby. Home Care: Do not drink any more alcohol. DO NOT DRIVE until all effects of the alcohol have worn off. Get lots of rest over the next few days. Drink plenty of water and other non-alcoholic liquids. Try to eat regular meals. If you have been drinking heavily on a daily basis, you may go through alcohol withdrawl. This is also called the shakes or DTs. The usual symptoms last 3 to 4 days and may include nervousness, shakiness, nausea, sweating or sleeplessness. During this time, it is best that you stay with family or friends who can help and support you. You can also admit yourself to a residential detox program. If your symptoms are severe, contact your doctor for medicines to help. Follow Up: If alcohol is causing a problem in your life, these and other organizations can help you: Alcoholics Anonymous offers support through a self-help fellowship. There are no dues or fees. See the Yellow Pages and call for time and place of meetings. www.aa.org [place] offers support to families of alcohol users. 431.492.5084 www.al-anon.org National [place] On Alcoholism And Drug Dependence 744-554-8153 www.ncadd.org There are also inpatient or residential alcohol detox programs. Check the Internet or phonebook Yellow Pages under Drug Abuse & Treatment Centers. Get Prompt Medical Attention if any of the following occur: there) You have been given the following additional information: Alcohol Intoxication (Electronically signed by Rosa Elena Banuelos PA-C 08/26/2016 20:02)
--- NOTE | 2016-08-26 20:02 | ED MAR SUMMARY ---
..... Medication Administration Record [facility] [address] [place], [place] [id number] Patient: MACK GIPSON Visit ID: [id number] 50y, M Weight: 68.0 kg Height/Length: 70 in BMI: 21.5 ALLERGIES: Penicillins
--- NOTE | 2016-08-26 20:02 | ED MED RECONCILIATION SUMMARY ---
Patient: MACK GIPSON Medication Reconciliation Report [facility] VisitID: [id number] [address] [place] [address] 50y, M Registration Date/Time: 08/26/2016 Weight: 68.0 kg Height/Length: 70 in. BMI: 21.5 ALLERGIES: Penicillins The patient's Home Medications are listed below: NONE. The source(s) of the original Home Medication information: patient The following Medications were given to the patient in the Emergency Department: None. The following Medications were prescribed to the patient: None.
--- NOTE | 2016-08-26 20:02 | ED DISCHARGE INSTRUCTIONS ---
Patient: MACK GIPSON General Instructions [facility] VisitID: [id number] [place] [address] 50y, M Registration Date/Time: 08/26/2016 Chronic substance abuse- alcohol, oxycodone with intoxication. INSTRUCTIONS (pt left AMA, signed out against advice. urged to seek care at [facility] as [facility] ADDITIONAL INFORMATION Alcohol Intoxication Alcohol intoxication occurs when you drink alcohol faster than your liver can remove it from your system. Alcohol intoxication affects your judgment and coordination. Very high blood alcohol levels can cause coma, very slow breathing and even . If you drink alcohol every day, this may gradually cause permanent damage to your liver, brain, heart, pancreas and other organs. Alcohol use during may cause permanent damage to the growing baby. Home Care: Do not drink any more alcohol. DO NOT DRIVE until all effects of the alcohol have worn off. Get lots of rest over the next few days. Drink plenty of water and other non-alcoholic liquids. Try to eat regular meals. If you have been drinking heavily on a daily basis, you may go through alcohol withdrawl. This is also called the shakes or DTs. The usual symptoms last 3 to 4 days and may include nervousness, shakiness, nausea, sweating or sleeplessness. During this time, it is best that you stay with family or friends who can help and support you. You can also admit yourself to a residential detox program. If your symptoms are severe, contact your doctor for medicines to help. Follow Up: If alcohol is causing a problem in your life, these and other organizations can help you: Alcoholics Anonymous offers support through a self-help fellowship. There are no dues or fees. See the Yellow Pages and call for time and place of meetings. www.aa.org [place] offers support to families of alcohol users. 800.944.7806 www.al-anon.org National [place] On Alcoholism And Drug Dependence 787-312-4856 www.ncadd.org There are also inpatient or residential alcohol detox programs. Check the Internet or phonebook Yellow Pages under Drug Abuse & Treatment Centers. Get Prompt Medical Attention if any of the following occur: there) You have been given the following additional information: Alcohol Intoxication (Electronically signed by Rosa Elena Banuelos PA-C 08/26/2016 20:02)
== END 2016-08-26 16:07 | disposition left against medical advice (07) ==
LOC: ED SRH 15:21
DX: F10.229 Alcohol dependence with intoxication, unspecified (principal); F11.129 Opioid abuse with intoxication, unspecified; G89.29 Other chronic pain; Z88.0 Allergy status to penicillin; F17.210 Nicotine dependence, cigarettes, uncomplicated

== ENCOUNTER 2016-09-03 19:47 | Emergency (ER) | payer OTHER ==
--- NOTE | 2016-09-03 20:26 | ED CLINICAL REPORT ---
Clinical Report - Physicians/Mid Levels [facility] [address] [place] [address] 09/03/2016 19:50 Patient: MACK GIPSON Time Seen: 19:55; upon arrival, initial patient contact, initial documentation, patient care assumed. Arrived- By private vehicle. Historian- patient. HISTORY OF PRESENT ILLNESS Chief Complaint: BACK PAIN and CHRONIC BACK PAIN. It is described as being in the area of the left mid lumbar spine and left lower lumbar spine. The quality is noted to be sharp, "pain" and similar to prior episodes (shooting). No radiation. Modifying factors- worsened by walking, rotation of the body to the right or left, bending over or lifting. Not relieved by anything. Onset- about 2 weeks ago and it is still present. No bladder dysfunction, bowel dysfunction, sensory loss or motor loss. Patient denies an injury but injury to the head or neck. Similar symptoms previously: Chronically, as bad. Recent medical care: The patient was seen recently at this facility in the emergency department. ( txed here for alcohol issues about a week ago). REVIEW OF SYSTEMS No fever, difficulty with urination, urinary frequency, hematuria or difficulty breathing. No chest pain, abdominal pain, vomiting or diarrhea. All systems otherwise negative, except as recorded above. PAST HISTORY See nurses notes. PROBLEMS: Adjustment Disorder. Lifestyle / Substance Problems. Chronic Back Pain. Narcotic Withdrawal. Suicidal Ideation. Alcohol Intoxication. Back Injury. Back Pain. --15:36 Marco Antonio Benavidez, R.N. ADDITIONAL SURGERIES: Back Surgery. Neck Surgery. --15:36 Marco Antonio Benavidez RSiddharth. SOCIAL HISTORY Light tobacco smoker. Heavy alcohol use. Patient is a longstanding alcoholic. Under the influence in E.D. History of heavy drug use: narcotics. No recent travel. Is a local resident. FAMILY HISTORY Negative. ADDITIONAL NOTES The nursing notes have been reviewed with agreement regarding the chief complaint, HPI, ROS, PMH and patient medications and allergies. PHYSICAL EXAM Vital Signs: 09/03/2016 19:57 BP: 124/83. HR: 95. RR: 16. O2 saturation: 100%. Temp: 98.4 F. Pain level now: 11/12. Have been reviewed as normal and appear to be correct. Appearance: Alert. No acute distress. (strong etoh breath). HEENT: Normal external inspection. Eyes: Pupils equal, round and reactive to light. Neck: Normal inspection. Neck nontender. Painless ROM. CVS: Heart sounds normal. Pulses normal. Respiratory: No respiratory distress. Breath sounds normal. Abdomen: No visible injury. Soft and nontender. Back: Normal inspection. No tenderness. Painless ROM. Skin: Skin warm and dry. Normal skin color. No rash. Normal skin turgor. Extremities: Extremities exhibit normal ROM. Extremities nontender. Neuro: Oriented X 3. Mood/affect normal. No motor deficit. No sensory deficit. PROGRESS AND PROCEDURES Differential Diagnosis: I considered Musculo-skeletal strain, contusion, retroperitoneal hematoma, disk protrusion, vertebral fracture, facet syndrome, sacroiliac joint strain, sciatica, osteoarthritis, lumbar spondylosis, spinal stenosis, ankylosing spondylitis and sacroiliac joint inflammation as a possible cause of back pain in this patient. This is a partial list of diagnoses considered. (substance abuse, alcoholism, etoh intoxication). Above considerations are based on history and physical exam. Differential diagnosis was discussed with patient. CLINICAL IMPRESSION Chronic nontraumatic lumbar back pain. (Electronically signed by Jeri Fontenot A.R.N.P. 09/03/2016 20:51)
--- NOTE | 2016-09-03 20:26 | ED NURSING NOTES ---
Clinical Report - Nurses [facility] [address] [place] [address] 09/03/2016 19:50 Patient: MACK GIPSON TRIAGE Triage time 19:57. Acuity: LEVEL 3. Chief Complaint: BACK PAIN. --20:07 Gary Alvarado R.N. 19:57 09/03/16. BP: 124/83. HR: 95. RR: 16. O2 saturation: 100% on room air. Temp: 98.4 F. Pain level now: 11/12. --20:07 Gary Alvarado R.N. Weight: 70.3 kg. Height/Length: 70 inches. BMI: 22.2. --20:06 Gary Alvarado R.N. Medications OxyCODONE HCl Oral 10 mg, 4x a day, last dose 3 weeks ago. --20:01 Gary Alvarado R.N. Medication/allergy information source: the patient. --20:07 Gary Alvarado R.N. Allergies Penicillin. --20:00 Gary Alvarado R.N. History Arrived by private vehicle. Historian: patient. ( Was sitting on the couch when he had sudden onset of lower back pain, shooting/sharp back pain worse when he moves around or walk). Worsened while participating in moderate exertion. Symptoms are constant (2 weeks). He has had right leg pain. 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 SURGERY HX: Back surgery. Laminectomy; fusion. SOCIAL HX: Light tobacco smoker (cigarette)- less than 1/2 a pack per day. Alcohol use; consumes two liquor drinks daily. Last drink was 2 hours ago. Patient is a longstanding alcoholic. No infectious disease exposure. FALL RISK ASSESSMENT: Fall risk assessment completed. Risk factors identified include patient impairment of mobility. Fall interventions initiated. Call light in reach of patient. Instructed not to get up without assistance. --20:07 Gary Alvarado R.N. Interventions ID band on patient. To treatment room. --20:07 Gary Alvarado R.N. PHYSICAL ASSESSMENT Ambulatory to room. GENERAL / NEURO / PSYCH: Alert. Oriented X 4. Appears in no acute distress. Appears in pain. RESPIRATORY: Respirations not labored. Chest nontender. Breath sounds within normal limits. CVS: Normal heart rate and rhythm. Capillary refill less than 2 seconds. GI / : Abdomen soft and nontender. Bowel sounds within normal limits. EXTREMITIES: Sensation intact in extremities. ROM of extremities within normal limits. BACK: Normal inspection of the neck and back. Vertebral point tenderness over the lumbar spine. Soft tissue tenderness in the right lower lumbar paraspinous region. --20:09 Gary Alvarado R.N. DISPOSITION / DISCHARGE 20:22. Departure time: 20:22. The patient left the Emergency Department without completion of treatment. Unable to locate patient. The patient did not notify the ED staff prior to leaving the department. ( went to give ordered medication to pt, pt was not in room , check ED and lobby restrooms and waiting room, unable to locate pt.). The patient eloped. --20:26 Mack Donohue R.N. Locked/Released at 09/14/2016 22:11 by Mack Donohue R.N.
--- NOTE | 2016-09-03 20:26 | ED ORDER SUMMARY ---
..... Patient: MACK GIPSON OrderSheet [facility] VisitID: [id number] [address] [place] [address] 50y, M Registration Date/Time: 09/03/2016 ORDER SHEET Weight: 70.3 kg Allergies: Penicillin GENERAL ORDERS: MEDICATION ORDERS: Toradol IM 60 mg (NOW) (20:13 09/03/2016 HBfrederick A.R.N.P.) (Ack 20:16 Jermaine R.N.) (Cancelled: pt eloped 20:21 Jermaine R.N.) IV FLUIDS: ORDER SHEET NOTES: [Electronically signed by Jeri FontenotR.N.PJing (20:51 09/03/2016)] [Electronically signed by Mack Donohue R.N. (22:11 09/14/2016)] [Electronically locked/signed by Mack Donohue R.N. (22:11 09/14/2016)]
--- NOTE | 2016-09-03 20:26 | ED NURSING NOTES ---
Clinical Report - Nurses [facility] [address] [place] [address] 09/03/2016 19:50 Patient: MACK GIPSON TRIAGE Triage time 19:57. Acuity: LEVEL 3. Chief Complaint: BACK PAIN. --20:07 Gary Alvarado R.N. 19:57 09/03/16. BP: 124/83. HR: 95. RR: 16. O2 saturation: 100% on room air. Temp: 98.4 F. Pain level now: 11/12. --20:07 Gary Alvarado R.N. Weight: 70.3 kg. Height/Length: 70 inches. BMI: 22.2. --20:06 Gary Alvarado R.N. Medications OxyCODONE HCl Oral 10 mg, 4x a day, last dose 3 weeks ago. --20:01 Gary Alvarado R.N. Medication/allergy information source: the patient. --20:07 Gary Alvarado R.N. Allergies Penicillin. --20:00 Gary Alvarado R.N. History Arrived by private vehicle. Historian: patient. ( Was sitting on the couch when he had sudden onset of lower back pain, shooting/sharp back pain worse when he moves around or walk). Worsened while participating in moderate exertion. Symptoms are constant (2 weeks). He has had right leg pain. 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 SURGERY HX: Back surgery. Laminectomy; fusion. SOCIAL HX: Light tobacco smoker (cigarette)- less than 1/2 a pack per day. Alcohol use; consumes two liquor drinks daily. Last drink was 2 hours ago. Patient is a longstanding alcoholic. No infectious disease exposure. FALL RISK ASSESSMENT: Fall risk assessment completed. Risk factors identified include patient impairment of mobility. Fall interventions initiated. Call light in reach of patient. Instructed not to get up without assistance. --20:07 Gary Alvarado R.N. Interventions ID band on patient. To treatment room. --20:07 Gary Alvarado R.N. PHYSICAL ASSESSMENT Ambulatory to room. GENERAL / NEURO / PSYCH: Alert. Oriented X 4. Appears in no acute distress. Appears in pain. RESPIRATORY: Respirations not labored. Chest nontender. Breath sounds within normal limits. CVS: Normal heart rate and rhythm. Capillary refill less than 2 seconds. GI / : Abdomen soft and nontender. Bowel sounds within normal limits. EXTREMITIES: Sensation intact in extremities. ROM of extremities within normal limits. BACK: Normal inspection of the neck and back. Vertebral point tenderness over the lumbar spine. Soft tissue tenderness in the right lower lumbar paraspinous region. --20:09 Gary Alvarado R.N. DISPOSITION / DISCHARGE 20:22. Departure time: 20:22. The patient left the Emergency Department without completion of treatment. Unable to locate patient. The patient did not notify the ED staff prior to leaving the department. ( went to give ordered medication to pt, pt was not in room , check ED and lobby restrooms and waiting room, unable to locate pt.). The patient eloped. --20:26 Mack Donohue R.N. Locked/Released at 09/14/2016 22:11 by Mack Donohue R.N.
--- NOTE | 2016-09-03 20:26 | ED ORDER SUMMARY ---
..... Patient: MACK GIPSON OrderSheet [facility] VisitID: [id number] [address] [place] [address] 50y, M Registration Date/Time: 09/03/2016 ORDER SHEET Weight: 70.3 kg Allergies: Penicillin GENERAL ORDERS: MEDICATION ORDERS: Toradol IM 60 mg (NOW) (20:13 09/03/2016 HBfrederick A.R.N.P.) (Ack 20:16 Jermaine R.N.) (Cancelled: pt eloped 20:21 Jermaine R.N.) IV FLUIDS: ORDER SHEET NOTES: [Electronically signed by Jeri FontenotR.N.PJing (20:51 09/03/2016)] [Electronically signed by Mack Donohue R.N. (22:11 09/14/2016)] [Electronically locked/signed by Mack Donohue R.N. (22:11 09/14/2016)]
--- NOTE | 2016-09-14 22:11 | ED MED RECONCILIATION SUMMARY ---
Patient: MACK GIPSON Medication Reconciliation Report [facility] VisitID: [id number] [address] [place] [address] 50y, M Registration Date/Time: 09/03/2016 Weight: 70.3 kg Height/Length: 70 in. BMI: 22.2 ALLERGIES: Penicillin The patient's Home Medications are listed below: THE FOLLOWING MEDICATIONS NEED TO BE RECONCILED: OxyCODONE HCl Oral 10 mg, 4x a day, last dose: 3 weeks ago The source(s) of the original Home Medication information: patient The following Medications were given to the patient in the Emergency Department: None. The following Medications were prescribed to the patient: None.
--- NOTE | 2016-09-14 22:11 | ED MAR SUMMARY ---
..... Medication Administration Record [facility] [address] [place], [place] [id number] Patient: MACK GIPSON Visit ID: [id number] 50y, M Weight: 70.3 kg Height/Length: 70 in BMI: 22.2 ALLERGIES: Penicillin
--- NOTE | 2016-09-14 22:11 | ED MAR SUMMARY ---
..... Medication Administration Record [facility] [address] [place], [place] [id number] Patient: MACK GIPSON Visit ID: [id number] 50y, M Weight: 70.3 kg Height/Length: 70 in BMI: 22.2 ALLERGIES: Penicillin
--- NOTE | 2016-09-14 22:11 | ED DISCHARGE INSTRUCTIONS ---
Patient: MACK GIPSON General Instructions [facility] VisitID: [id number] [address] [place] [address] 50y, M Registration Date/Time: 09/03/2016 Chronic nontraumatic lumbar back pain. (Electronically signed by Jeri Fontenot A.R.N.P. 09/03/2016 20:51)
--- NOTE | 2016-09-14 22:11 | ED DISCHARGE INSTRUCTIONS ---
Patient: MACK GIPSON General Instructions [facility] VisitID: [id number] [address] [place] [address] 50y, M Registration Date/Time: 09/03/2016 Chronic nontraumatic lumbar back pain. (Electronically signed by Jeri Fontenot A.R.N.P. 09/03/2016 20:51)
--- NOTE | 2016-09-14 22:11 | ED MED RECONCILIATION SUMMARY ---
Patient: MACK GIPSON Medication Reconciliation Report [facility] VisitID: [id number] [address] [place] [address] 50y, M Registration Date/Time: 09/03/2016 Weight: 70.3 kg Height/Length: 70 in. BMI: 22.2 ALLERGIES: Penicillin The patient's Home Medications are listed below: THE FOLLOWING MEDICATIONS NEED TO BE RECONCILED: OxyCODONE HCl Oral 10 mg, 4x a day, last dose: 3 weeks ago The source(s) of the original Home Medication information: patient The following Medications were given to the patient in the Emergency Department: None. The following Medications were prescribed to the patient: None.
== END 2016-09-03 20:22 | disposition left against medical advice (07) ==
LOC: ED SRH 19:47
DX: M54.5 Low back pain (principal); G89.29 Other chronic pain; Z72.0 Tobacco use; Z88.0 Allergy status to penicillin

== ENCOUNTER 2016-09-04 10:21 | Emergency (ER) | payer OTHER ==
--- NOTE | 2016-09-04 23:05 | ED CLINICAL REPORT ---
Clinical Report - Physicians/Mid Levels [facility] [address] [place] [address] 09/04/2016 10:23 Patient: MACK GIPSON Time Seen: 10:40. Arrived- By private vehicle. Historian- patient. HISTORY OF PRESENT ILLNESS Chief Complaint: INTOXICATED. Wants to stop drinking. Wants to enter detox program. Symptoms started today. Substances abused: Alcohol. (about 2 hours ago). No fever, diarrhea, abdominal pain, tremors or seizure. No agitation, delusions, hallucinations or suicidal thoughts. Not confused or paranoid. The symptoms are described as moderate. No injuries noted. Similar symptoms previously: Recent medical care: The patient was seen recently at this facility and another facility in the emergency department. ( Pt states that he was released from alcohol detox at a facility in [place] about 2 days ago - he states that he stayed ", Saturday, Saturday and left Saturday" - he then presented to [facility] ED yesterday for back pain). REVIEW OF SYSTEMS No sweats, headache, dizziness, weakness or chest pain. No palpitations, black stools, numbness, bloody stools or sore throat. No cough, difficulty breathing, difficulty with urination, skin abscess or joint pain. The patient has had difficulty walking. All systems otherwise negative, except as recorded above. PAST HISTORY PCP: Dr Brock PROBLEMS: Substance Abuse. Adjustment Disorder. Lifestyle / Substance Problems. Chronic Back Pain. Narcotic Withdrawal. Suicidal Ideation. Alcohol Intoxication. Back Injury. Back Pain. SURGERIES: Back Surgery. Neck Surgery. Medications: None. Allergies: Penicillins. SOCIAL HISTORY Smoker- current status unknown. Alcohol use. Patient is a longstanding alcoholic. ADDITIONAL NOTES The nursing notes have been reviewed. PHYSICAL EXAM Vital Signs: 09/04/2016 10:28 BP: 135/77. HR: 102. RR: 18. O2 saturation: 98%. Temp: 97.8 F. Pain level now: 7/10. Appearance: Alert. Oriented X3. Anxious. Odor of alcohol is present. Patient in mild distress. Head: Head atraumatic. Eyes: Pupils equal, round and reactive to light. ENT: Normal ENT inspection. Airway intact. Moist mucous membranes. Pharynx normal. Neck: Normal inspection. Neck supple. CVS: Heart sounds normal. Pulses normal. Respiratory: No respiratory distress. Breath sounds normal. Abdomen: Soft and nontender. Back: Normal inspection. Skin: Skin warm and dry. Normal skin color. No rash. Normal skin turgor. Extremities: Extremities exhibit normal ROM. No lower extremity edema. No calf tenderness. No lower extremity edema. Neuro: Alert. Oriented X 3. Cranial nerves normal (as tested). No cerebellar findings. No motor deficit. No sensory deficit. LABS, X-RAYS, AND EKG Laboratory Tests: Breathalyzer 0.292 . Pulse Oximetry: 09/04/2016 10:28 O2 saturation: 98%. (FIO2 - room air). Interpretation: normal. PROGRESS AND PROCEDURES Course of Care: 11:29 09/04/16. Contacted [facility] and they need to speak with pt directly - [facility] [place] to arrange bed for later today - Esther states that "we may have a bed today". Patient/family counseled. Old ED records reviewed. Patient has had multiple ED visits (9 visits to [facility] ED in past approx 5 months; [facility] with 13 visits to [facility] ED's in past 12 months). Disposition: Discharged. Condition: stable and improved. CLINICAL IMPRESSION Uncomplicated alcohol intoxication with alcohol dependence. No alcohol intoxication with delirium. INSTRUCTIONS Drink plenty of fluids. No alcohol (Please consider alcohol detox center such as [facility] in [facility] today). Seek medical help to quit drinking. Warnings: Further evaluation is necessary in order to conduct further tests. It is very important to follow up with a physician. GENERAL WARNINGS: Return or contact your physician immediately if your condition worsens or changes unexpectedly, if not improving as expected, or if other problems arise. Follow-up: Follow up with your doctor tomorrow. Discharge instructions not reviewed with guardian. (Electronically signed by Celestine Cohn DO 09/04/2016 23:05)
--- NOTE | 2016-09-04 23:05 | ED NURSING NOTES ---
Clinical Report - Nurses [facility] [address] [place] [address] 09/04/2016 10:23 [id number] Triage time 10:28. Acuity: LEVEL 3. Chief Complaint: NAUSEA and VOMITING ("acute alcohol withdrawl"). Alert. No acute distress. TONNY COMA SCORE: Tonny Coma Scale: 15- eyes open spontaneously (4); best verbal response- oriented x 4 (5); best motor response- obeys commands (6). --10:38 María Mendoza R.N. 10:28 09/04/16. BP: 135/77. HR: 102. RR: 18. O2 saturation: 98% on room air. Temp: 97.8 F (oral). Pain level now: 11/12. --10:38 María Mendoza R.N. Weight: 70.3 kg stated. Height/Length: 70 inches Per Patient. BMI: 22.2. --10:32 María Mendoza R.N. Medications None. --10:29 María Mendoza R.N. Medication/allergy information source: the patient. --10:38 María Mendoza R.N. Allergies Penicillins. --10:30 María Mendoza R.N. History Arrived by private vehicle. Historian: patient. Accompanied by family. Primary physician (Delmy). Onset. (last drink was about 3 hours ago). ( states he stopped taking Oxycodone about 3 weeks ago). SOCIAL HX: Heavy tobacco smoker- less than 1 pack per day. Alcohol use; consumes liquor. (about a pint overy other day). No drug use. FALL RISK ASSESSMENT: Fall risk assessment completed. No fall risk identified. FUNCTIONAL ASSESSMENT: Functional assessment: no impairments noted. LEARNING NEEDS ASSESSMENT: The learning needs assessment revealed no barriers. --10:38 María Mendoza R.N. PROBLEMS: Substance Abuse. Adjustment Disorder. Lifestyle / Substance Problems. Chronic Back Pain. Narcotic Withdrawal. Suicidal Ideation. Alcohol Intoxication. Back Injury. Back Pain. --10:31 María Mendoza R.N. ADDITIONAL SURGERIES: Back Surgery. Neck Surgery. --10:31 María Mendoza R.N. Assessment GENERAL / NEURO / PSYCH: Alert. Oriented X 4. Appears in no acute distress. Patient appears calm and cooperative. RESPIRATORY: Respirations not labored. SKIN: Skin is warm and dry. --10:38 María Mendoza R.N. Interventions ID and allergy band on patient. To treatment room. --10:38 María Mendoza R.N. PHYSICAL ASSESSMENT 10:30. Ambulatory to room. GENERAL / NEURO / PSYCH: The patient is awake and alert, is oriented, has poor eye contact and appears agitated. RESPIRATORY: Respirations not labored. SKIN: Skin is warm and dry. --13:17 María Mendoza R.N. NURSING PROGRESS NOTES 11:05 09/04/16. ( Breathalyzer showed .292.). --11:05 Celestine Kwan ER Tech1 ( Called [facility] in [place]- [phone] to attempt to get pt. admitted. Had to leave message. Called [facility] in [place]- [phone] requesting a bed for pt. Pt. is to call there today to see if a bed is available.). --11:16 Annabelle Cristina ER Tech1 10:30. Patient refused to place gown on. Call light placed in reach. Side rails up x 1. Bed placed in lowest position. Brakes of bed on. --13:18 María Mendoza R.N. DISPOSITION / DISCHARGE Departure time: 11:37 Sep 04 2016. The patient left prior to discharge education being provided. ( Gave patient address and phone number to call for detox. Was instructed to call and get screened. Patient not wanting to wait here in the ER and went out front to take a cab.). --11:37 Darron Walton R.N. Locked/Released at 09/04/2016 13:19 by María Mendoza R.N.
--- NOTE | 2016-09-04 23:05 | ED CLINICAL REPORT ---
Clinical Report - Physicians/Mid Levels [facility] [address] [place] [address] 09/04/2016 10:23 Patient: MACK GIPSON Time Seen: 10:40. Arrived- By private vehicle. Historian- patient. HISTORY OF PRESENT ILLNESS Chief Complaint: INTOXICATED. Wants to stop drinking. Wants to enter detox program. Symptoms started today. Substances abused: Alcohol. (about 2 hours ago). No fever, diarrhea, abdominal pain, tremors or seizure. No agitation, delusions, hallucinations or suicidal thoughts. Not confused or paranoid. The symptoms are described as moderate. No injuries noted. Similar symptoms previously: Recent medical care: The patient was seen recently at this facility and another facility in the emergency department. ( Pt states that he was released from alcohol detox at a facility in [place] about 2 days ago - he states that he stayed ", Saturday, Saturday and left Saturday" - he then presented to [facility] ED yesterday for back pain). REVIEW OF SYSTEMS No sweats, headache, dizziness, weakness or chest pain. No palpitations, black stools, numbness, bloody stools or sore throat. No cough, difficulty breathing, difficulty with urination, skin abscess or joint pain. The patient has had difficulty walking. All systems otherwise negative, except as recorded above. PAST HISTORY PCP: Dr Brock PROBLEMS: Substance Abuse. Adjustment Disorder. Lifestyle / Substance Problems. Chronic Back Pain. Narcotic Withdrawal. Suicidal Ideation. Alcohol Intoxication. Back Injury. Back Pain. SURGERIES: Back Surgery. Neck Surgery. Medications: None. Allergies: Penicillins. SOCIAL HISTORY Smoker- current status unknown. Alcohol use. Patient is a longstanding alcoholic. ADDITIONAL NOTES The nursing notes have been reviewed. PHYSICAL EXAM Vital Signs: 09/04/2016 10:28 BP: 135/77. HR: 102. RR: 18. O2 saturation: 98%. Temp: 97.8 F. Pain level now: 7/10. Appearance: Alert. Oriented X3. Anxious. Odor of alcohol is present. Patient in mild distress. Head: Head atraumatic. Eyes: Pupils equal, round and reactive to light. ENT: Normal ENT inspection. Airway intact. Moist mucous membranes. Pharynx normal. Neck: Normal inspection. Neck supple. CVS: Heart sounds normal. Pulses normal. Respiratory: No respiratory distress. Breath sounds normal. Abdomen: Soft and nontender. Back: Normal inspection. Skin: Skin warm and dry. Normal skin color. No rash. Normal skin turgor. Extremities: Extremities exhibit normal ROM. No lower extremity edema. No calf tenderness. No lower extremity edema. Neuro: Alert. Oriented X 3. Cranial nerves normal (as tested). No cerebellar findings. No motor deficit. No sensory deficit. LABS, X-RAYS, AND EKG Laboratory Tests: Breathalyzer 0.292 . Pulse Oximetry: 09/04/2016 10:28 O2 saturation: 98%. (FIO2 - room air). Interpretation: normal. PROGRESS AND PROCEDURES Course of Care: 11:29 09/04/16. Contacted [facility] and they need to speak with pt directly - [facility] [place] to arrange bed for later today - Esther states that "we may have a bed today". Patient/family counseled. Old ED records reviewed. Patient has had multiple ED visits (9 visits to [facility] ED in past approx 5 months; [facility] with 13 visits to [facility] ED's in past 12 months). Disposition: Discharged. Condition: stable and improved. CLINICAL IMPRESSION Uncomplicated alcohol intoxication with alcohol dependence. No alcohol intoxication with delirium. INSTRUCTIONS Drink plenty of fluids. No alcohol (Please consider alcohol detox center such as [facility] in [facility] today). Seek medical help to quit drinking. Warnings: Further evaluation is necessary in order to conduct further tests. It is very important to follow up with a physician. GENERAL WARNINGS: Return or contact your physician immediately if your condition worsens or changes unexpectedly, if not improving as expected, or if other problems arise. Follow-up: Follow up with your doctor tomorrow. Discharge instructions not reviewed with guardian. (Electronically signed by Celestine Cohn DO 09/04/2016 23:05)
--- NOTE | 2016-09-04 23:05 | ED NURSING NOTES ---
Clinical Report - Nurses [facility] [address] [place] [address] 09/04/2016 10:23 [id number] Triage time 10:28. Acuity: LEVEL 3. Chief Complaint: NAUSEA and VOMITING ("acute alcohol withdrawl"). Alert. No acute distress. TONNY COMA SCORE: Tonny Coma Scale: 15- eyes open spontaneously (4); best verbal response- oriented x 4 (5); best motor response- obeys commands (6). --10:38 María Mendoza R.N. 10:28 09/04/16. BP: 135/77. HR: 102. RR: 18. O2 saturation: 98% on room air. Temp: 97.8 F (oral). Pain level now: 11/12. --10:38 María Mendoza R.N. Weight: 70.3 kg stated. Height/Length: 70 inches Per Patient. BMI: 22.2. --10:32 María Mendoza R.N. Medications None. --10:29 María Mendoza R.N. Medication/allergy information source: the patient. --10:38 María Mendoza R.N. Allergies Penicillins. --10:30 María Mendoza R.N. History Arrived by private vehicle. Historian: patient. Accompanied by family. Primary physician (Delmy). Onset. (last drink was about 3 hours ago). ( states he stopped taking Oxycodone about 3 weeks ago). SOCIAL HX: Heavy tobacco smoker- less than 1 pack per day. Alcohol use; consumes liquor. (about a pint overy other day). No drug use. FALL RISK ASSESSMENT: Fall risk assessment completed. No fall risk identified. FUNCTIONAL ASSESSMENT: Functional assessment: no impairments noted. LEARNING NEEDS ASSESSMENT: The learning needs assessment revealed no barriers. --10:38 María Mendoza R.N. PROBLEMS: Substance Abuse. Adjustment Disorder. Lifestyle / Substance Problems. Chronic Back Pain. Narcotic Withdrawal. Suicidal Ideation. Alcohol Intoxication. Back Injury. Back Pain. --10:31 María Mendoza R.N. ADDITIONAL SURGERIES: Back Surgery. Neck Surgery. --10:31 María Mendoza R.N. Assessment GENERAL / NEURO / PSYCH: Alert. Oriented X 4. Appears in no acute distress. Patient appears calm and cooperative. RESPIRATORY: Respirations not labored. SKIN: Skin is warm and dry. --10:38 María Mendoza R.N. Interventions ID and allergy band on patient. To treatment room. --10:38 María Mendoza R.N. PHYSICAL ASSESSMENT 10:30. Ambulatory to room. GENERAL / NEURO / PSYCH: The patient is awake and alert, is oriented, has poor eye contact and appears agitated. RESPIRATORY: Respirations not labored. SKIN: Skin is warm and dry. --13:17 María Mendoza R.N. NURSING PROGRESS NOTES 11:05 09/04/16. ( Breathalyzer showed .292.). --11:05 Celestine Kwan ER Tech1 ( Called [facility] in [place]- [phone] to attempt to get pt. admitted. Had to leave message. Called [facility] in [place]- [phone] requesting a bed for pt. Pt. is to call there today to see if a bed is available.). --11:16 Annabelle Cristina ER Tech1 10:30. Patient refused to place gown on. Call light placed in reach. Side rails up x 1. Bed placed in lowest position. Brakes of bed on. --13:18 María Mendoza R.N. DISPOSITION / DISCHARGE Departure time: 11:37 Sep 04 2016. The patient left prior to discharge education being provided. ( Gave patient address and phone number to call for detox. Was instructed to call and get screened. Patient not wanting to wait here in the ER and went out front to take a cab.). --11:37 Darron Walton R.N. Locked/Released at 09/04/2016 13:19 by María Mendoza R.N.
--- NOTE | 2016-09-04 23:06 | ED DISCHARGE INSTRUCTIONS ---
Patient: MACK GIPSON General Instructions [facility] VisitID: [id number] [place] [address] 50y, M Registration Date/Time: 09/04/2016 Uncomplicated alcohol intoxication with alcohol dependence. No alcohol intoxication with delirium. INSTRUCTIONS Drink plenty of fluids. No alcohol (Please consider alcohol detox center such as [facility] in [facility] today). Seek medical help to quit drinking. Warnings: Further evaluation is necessary in order to conduct further tests. It is very important to follow up with a physician. GENERAL WARNINGS: Return or contact your physician immediately if your condition worsens or changes unexpectedly, if not improving as expected, or if other problems arise. Follow-up: Follow up with your doctor tomorrow. Discharge instructions not reviewed with guardian. ADDITIONAL INFORMATION Alcohol Intoxication Alcohol intoxication occurs when you drink alcohol faster than your liver can remove it from your system. Alcohol intoxication affects your judgment and coordination. Very high blood alcohol levels can cause coma, very slow breathing and even . If you drink alcohol every day, this may gradually cause permanent damage to your liver, brain, heart, pancreas and other organs. Alcohol use during may cause permanent damage to the growing baby. Home Care: Do not drink any more alcohol. DO NOT DRIVE until all effects of the alcohol have worn off. Get lots of rest over the next few days. Drink plenty of water and other non-alcoholic liquids. Try to eat regular meals. If you have been drinking heavily on a daily basis, you may go through alcohol withdrawl. This is also called the shakes or DTs. The usual symptoms last 3 to 4 days and may include nervousness, shakiness, nausea, sweating or sleeplessness. During this time, it is best that you stay with family or friends who can help and support you. You can also admit yourself to a residential detox program. If your symptoms are severe, contact your doctor for medicines to help. Follow Up: If alcohol is causing a problem in your life, these and other organizations can help you: Alcoholics Anonymous offers support through a self-help fellowship. There are no dues or fees. See the Yellow Pages and call for time and place of meetings. www.aa.org [place] offers support to families of alcohol users. 446.121.3039 www.al-anon.org National [place] On Alcoholism And Drug Dependence 928-752-5431 www.ncadd.org There are also inpatient or residential alcohol detox programs. Check the Internet or phonebook Yellow Pages under Drug Abuse & Treatment Centers. Get Prompt Medical Attention if any of the following occur: there) You have been given the following additional information: Alcohol Intoxication (Electronically signed by Celestine Cohn DO 09/04/2016 23:05)
--- NOTE | 2016-09-04 23:06 | ED ORDER SUMMARY ---
..... Patient: MACK GIPSON OrderSheet [facility] VisitID: [id number] [address] [place] [address] 50y, M Registration Date/Time: 09/04/2016 ORDER SHEET Weight: 70.3 kg (stated) Allergies: Penicillins GENERAL ORDERS: Breathalyzer (10:43 09/04/2016 Ashlie CHILD) (10:56 [place] [address]) MEDICATION ORDERS: IV FLUIDS: ORDER SHEET NOTES: [Electronically signed by María Mendoza R.N. (13:09/04/2016)] [Electronically signed by Celestine Cohn DO (23:09/04/2016)] [Electronically locked/signed by María Mendoza R.N. (:09/04/2016)]
--- NOTE | 2016-09-04 23:06 | ED MAR SUMMARY ---
..... Medication Administration Record [facility] [address] [place], [place] [id number] Patient: MACK GIPSON Visit ID: [id number] 50y, M Weight: 70.3 kg Height/Length: 70 in BMI: 22.2 ALLERGIES: Penicillins
--- NOTE | 2016-09-04 23:06 | ED MAR SUMMARY ---
..... Medication Administration Record [facility] [address] [place], [place] [id number] Patient: MACK GIPSON Visit ID: [id number] 50y, M Weight: 70.3 kg Height/Length: 70 in BMI: 22.2 ALLERGIES: Penicillins
--- NOTE | 2016-09-04 23:06 | ED MED RECONCILIATION SUMMARY ---
Patient: MACK GIPSON Medication Reconciliation Report [facility] VisitID: [id number] [address] [place] [address] 50y, M Registration Date/Time: 09/04/2016 Weight: 70.3 kg Height/Length: 70 in. BMI: 22.2 ALLERGIES: Penicillins The patient's Home Medications are listed below: NONE. The source(s) of the original Home Medication information: patient The following Medications were given to the patient in the Emergency Department: None. The following Medications were prescribed to the patient: None.
--- NOTE | 2016-09-04 23:06 | ED MED RECONCILIATION SUMMARY ---
Patient: MACK GIPSON Medication Reconciliation Report [facility] VisitID: [id number] [address] [place] [address] 50y, M Registration Date/Time: 09/04/2016 Weight: 70.3 kg Height/Length: 70 in. BMI: 22.2 ALLERGIES: Penicillins The patient's Home Medications are listed below: NONE. The source(s) of the original Home Medication information: patient The following Medications were given to the patient in the Emergency Department: None. The following Medications were prescribed to the patient: None.
--- NOTE | 2016-09-04 23:06 | ED DISCHARGE INSTRUCTIONS ---
Patient: MACK GIPSON General Instructions [facility] VisitID: [id number] [place] [address] 50y, M Registration Date/Time: 09/04/2016 Uncomplicated alcohol intoxication with alcohol dependence. No alcohol intoxication with delirium. INSTRUCTIONS Drink plenty of fluids. No alcohol (Please consider alcohol detox center such as [facility] in [facility] today). Seek medical help to quit drinking. Warnings: Further evaluation is necessary in order to conduct further tests. It is very important to follow up with a physician. GENERAL WARNINGS: Return or contact your physician immediately if your condition worsens or changes unexpectedly, if not improving as expected, or if other problems arise. Follow-up: Follow up with your doctor tomorrow. Discharge instructions not reviewed with guardian. ADDITIONAL INFORMATION Alcohol Intoxication Alcohol intoxication occurs when you drink alcohol faster than your liver can remove it from your system. Alcohol intoxication affects your judgment and coordination. Very high blood alcohol levels can cause coma, very slow breathing and even . If you drink alcohol every day, this may gradually cause permanent damage to your liver, brain, heart, pancreas and other organs. Alcohol use during may cause permanent damage to the growing baby. Home Care: Do not drink any more alcohol. DO NOT DRIVE until all effects of the alcohol have worn off. Get lots of rest over the next few days. Drink plenty of water and other non-alcoholic liquids. Try to eat regular meals. If you have been drinking heavily on a daily basis, you may go through alcohol withdrawl. This is also called the shakes or DTs. The usual symptoms last 3 to 4 days and may include nervousness, shakiness, nausea, sweating or sleeplessness. During this time, it is best that you stay with family or friends who can help and support you. You can also admit yourself to a residential detox program. If your symptoms are severe, contact your doctor for medicines to help. Follow Up: If alcohol is causing a problem in your life, these and other organizations can help you: Alcoholics Anonymous offers support through a self-help fellowship. There are no dues or fees. See the Yellow Pages and call for time and place of meetings. www.aa.org [employer] offers support to families of alcohol users. 809.739.9032 www.al-anon.org National [place] On Alcoholism And Drug Dependence 543-236-5161 www.ncadd.org There are also inpatient or residential alcohol detox programs. Check the Internet or phonebook Yellow Pages under Drug Abuse & Treatment Centers. Get Prompt Medical Attention if any of the following occur: there) You have been given the following additional information: Alcohol Intoxication (Electronically signed by Celestine Cohn DO 09/04/2016 23:05)
--- NOTE | 2016-09-04 23:06 | ED ORDER SUMMARY ---
..... Patient: MACK GIPSON OrderSheet [facility] VisitID: [id number] [address] [place] [address] 50y, M Registration Date/Time: 09/04/2016 ORDER SHEET Weight: 70.3 kg (stated) Allergies: Penicillins GENERAL ORDERS: Breathalyzer (10:43 09/04/2016 Ashlie CHILD) (10:56 [place] [address]) MEDICATION ORDERS: IV FLUIDS: ORDER SHEET NOTES: [Electronically signed by María Mendoza R.N. (13:09/04/2016)] [Electronically signed by Celestine Cohn DO (23:09/04/2016)] [Electronically locked/signed by María Mendoza R.N. (:09/04/2016)]
== END 2016-09-04 11:37 | disposition home or self-care (01) ==
LOC: ED SRH 10:21
DX: F10.220 Alcohol dependence with intoxication, uncomplicated (principal); F17.219 Nicotine dependence, cigarettes, with unspecified nicotine-induced disorders; Z88.0 Allergy status to penicillin